=== PATIENT | male | born 1940 | race Caucasian/White ===

== ENCOUNTER → 2018-01-06 16:13 | Outpatient (CLI) | payer MEDICARE, OTHER, SELFPAY ==
[2018-01-06 17:44] LABS: Blood Urea Nitrogen 21 mg/dL (9-20); Calcium 9.5 mg/dL (8.4-10.2); Carbon Dioxide 19 mmol/L (22-32); Chloride 105 mmol/L (98-107); Estimated Glomerular Filt Rate 48.9 mL/min (>60); Glucose 107 mg/dL (80-110); HEMOLYSIS 19 (0-50); Potassium 3.7 mmol/L (3.4-5.1); Sodium 145 mmol/L (137-145)
[2018-01-06 18:18] LABS: Hemoglobin A1C% w Est Avg Glu 6.5 % (4.0-6.0)
== END ==
PROVIDERS: PCP Internal Medicine; Visit Provider Internal Medicine
DX: E11.9 Type 2 diabetes mellitus without complications (principal); I10 Essential (primary) hypertension
CPT/HCPCS: 36415; 80048; 83036

== ENCOUNTER → 2018-03-31 15:56 | Outpatient (CLI) | payer MEDICARE, OTHER, SELFPAY ==
--- NOTE | 2018-03-31 15:57 | DI.RAD.S_ITS ---
PROCEDURE: XR CHEST 2V INDICATIONS: coughing; O2 sat 95-96% TECHNIQUE: 2 views of the chest were acquired. COMPARISON: [facility], CHEST 2 VIEW, 10/24/2017, 16:58. Located Within [facility], , CHEST 1 VIEW, 04/27/2017, 18:33. Located Within [facility], , CHEST 2 VIEW, 09/23/2016, 10:27. FINDINGS: Surgical changes and devices: None. Lungs and pleura: No pleural effusions or pneumothorax. Lungs are clear. Mediastinum: Mediastinal contours are normal. Heart size is normal. Bones and chest wall: No suspicious bony abnormalities. Soft tissues appear unremarkable. IMPRESSION: Normal for age, source of current symptoms is not seen. Dictated by: John Rivas M.D. on 03/31/2018 at 16:35 Approved by: John Rivas M.D. on 03/31/2018 at 16:35
== END ==
PROVIDERS: Family Provider Internal Medicine; PCP Internal Medicine; Visit Provider Nurse Practitioner Family
DX: R05 Cough (principal)
CPT/HCPCS: 71046

== ENCOUNTER → 2018-09-24 14:25 | Outpatient (CLI) | payer MEDICARE, OTHER, SELFPAY ==
[2018-09-24 16:15] LABS: Hemoglobin A1C% w Est Avg Glu 6.1 % (4.0-6.0)
[2018-09-24 16:29] LABS: Alanine Aminotransferase 57 IU/L (21-72); Albumin 4.5 g/dL (3.5-5.0); Albumin Globulin Ratio 1.2 (1.0-2.8); Alkaline Phosphatase 39 U/L (38-126); Aspartate Aminotransferase 56 IU/L (17-59); BUN Creatinine Ratio 15.4 (6-22); Blood Urea Nitrogen 20 mg/dL (9-20); Calcium 9.5 mg/dL (8.4-10.2); Carbon Dioxide 22 mmol/L (22-32); Chloride 104 mmol/L (98-107); Estimated Glomerular Filt Rate 53.1 mL/min (>60); Globulin 3.8 g/dL (1.7-4.1); Glucose 111 mg/dL (80-110); HEMOLYSIS < 15 (0-50); Potassium 4.3 mmol/L (3.4-5.1); Sodium 142 mmol/L (137-145); Total Protein 8.3 g/dL (6.3-8.2)
== END ==
PROVIDERS: PCP Internal Medicine; Visit Provider Internal Medicine
DX: E11.9 Type 2 diabetes mellitus without complications (principal); I10 Essential (primary) hypertension; Z86.73 Personal history of transient ischemic attack (TIA), and cerebral infarction without residual deficits
CPT/HCPCS: 36415; 80053; 83036

== ENCOUNTER → 2019-03-18 15:18 | Outpatient (CLI) | payer MEDICARE, OTHER, SELFPAY ==
[2019-03-18 16:20] LABS: Alanine Aminotransferase 41 IU/L (21-72); Albumin 4.2 g/dL (3.5-5.0); Albumin Globulin Ratio 1.2 (1.0-2.8); Alkaline Phosphatase 39 U/L (38-126); Aspartate Aminotransferase 48 IU/L (17-59); BUN Creatinine Ratio 13.6 (6-22); Bilirubin Total 0.9 mg/dL (0.2-1.3); Blood Urea Nitrogen 19 mg/dL (9-20); Calcium 9.6 mg/dL (8.4-10.2); Carbon Dioxide 24 mmol/L (22-32); Chloride 104 mmol/L (98-107); Estimated Glomerular Filt Rate 48.8 mL/min (>60); Globulin 3.5 g/dL (1.7-4.1); Glucose 104 mg/dL (80-110); HEMOLYSIS < 15 (0-50); Potassium 4.3 mmol/L (3.4-5.1); Sodium 141 mmol/L (137-145); Total Protein 7.7 g/dL (6.3-8.2)
== END ==
PROVIDERS: PCP Internal Medicine; Visit Provider Internal Medicine
DX: E11.9 Type 2 diabetes mellitus without complications (principal); I10 Essential (primary) hypertension; I73.9 Peripheral vascular disease, unspecified
CPT/HCPCS: 36415; 80053; 83036

== ENCOUNTER 2020-06-08 13:50 | Emergency (ER) | payer MEDICARE, OTHER, SELFPAY ==
[2020-06-08] VITALS (8 sets, daily range): BP systolic 108–116; BP diastolic 51–66; PULSE 81–92; RESP 16–24; TEMP 37.1; O2SAT 95–100
--- NOTE | 2020-06-08 14:04 | ED.GENADULT ---
HPI - General Adult General Chief complaint: Fall Stated complaint: GLF Time Seen by Provider: 06/08/20 13:57 Source: EMS Mode of arrival: EMS Limitations: no limitations History of Present Illness HPI narrative: 80-year-old male brought in by EMS for evaluation of 2 days of weakness and a ?controlled fall ?out of his chair at home. EMS reports that they were called to the house by the patient's daughter for a fever yesterday and weakness for the past couple days. Daughter was not at bedside however was able to talk with her over the phone. EMS reports that he was alert oriented x4 however patient's daughter states that at baseline he does have confusion. He is not on anticoagulation. There were no reported injuries from the fall. The daughter states she was concerned about an infection and wanted him evaluated. Patient has no complaints. Related Data Home Medications Medication Instructions Recorded Confirmed aspirin 81 mg PO QDAY #0 01/17/17 03/18/19 krill oil 500 mg capsule mg PO 03/18/19 03/18/19 multivitamin 1 cap PO DAILY 03/18/19 03/18/19 Previous Rx's Medication Instructions Recorded atorvastatin 40 mg tablet 40 mg PO QDAY #30 tab 10/18/19 Allergies Allergy/AdvReac Type Severity Reaction Status Date / Time No Known Drug Allergies Allergy Unknown Verified 03/18/19 15:02 Review of Systems Constitutional Constitutional: Reports fever(s) (Yesterday per daughter) Cardiovascular Cardiovascular: Denies chest pain and Denies dyspnea Respiratory Respiratory: Denies dyspnea Gastrointestinal Gastrointestinal: Denies abdominal pain and Denies nausea Integumentary/Breasts Skin/Breast: Denies rash Comments: Wounds on his buttocks Neurologic Neurologic: Denies behavioral changes Comments: Baseline confusion per daughter over the phone Psychiatric Psychiatric: Denies behavioral changes Hematologic/Lymphatic Comments: Not on anticoagulation per daughter Allergic/Immunologic Allergic/Immunologic: Denies urticaria Patient History Medical History Benign prostatic hyperplasia with incomplete bladder emptying (05/09/17) Chronic renal failure, stage 2 (mild) History of stroke (03/12/11) Hypertension (03/12/11) Peripheral vascular disease Type 2 diabetes mellitus without complication (03/12/11) Surgical History History of carotid endarterectomy (~02/2009) S/P MARKETING SERVICES SPECIALIST shunt Social History Smoking Status: Former smoker Smoking Status: Former smoker Exam Initial Vital Signs Initial Vital Signs: Vital Signs Temperature 98.7 F 06/08/20 14:04 Pulse Rate 92 H 06/08/20 14:04 Respiratory Rate 16 06/08/20 14:04 Blood Pressure 113/58 L 06/08/20 14:04 Pulse Oximetry 99 06/08/20 14:04 Const General: comfortable Limitations: altered mental status HENMT Head: normal to inspection and normocephalic Resp Effort & Inspection: normal respiratory effort Auscultation: clear to auscultation bilaterally Cardio Rate: regular rate Rhythm: regular rhythm GI Inspection: non-distended Palpation: soft Skin Other: Patient with 2 areas of pressure ulcers on his upper buttocks. Right being greater than left. The ulcer itself on the right his 3 cm x 3 cm with surrounding erythema. There is no drainage from this area there is also some crusting. The ulcer on the left is 1 cm x 1 cm again with surrounding erythema. The ulcerations are just below the skin without any subcutaneous tissue exposed. Course Orders Ordered: ED Orders 06/08/20 14:02 Basic Metabolic Panel Stat Complete Blood Count AUTO DIFF Stat 06/08/20 14:03 Consult to RECREATION PROGRAMMER - Keyboard Action Assembler Stat Partial Thromboplastin Time Stat Prothrombin Time INR Stat Vital Signs Vital signs: Vital Signs - 8 hr 06/08/20 14:04 Temperature 98.7 F Pulse Rate 92 H Respiratory Rate 16 Blood Pressure 113/58 L Pulse Oximetry 99 Medical Decision Making Lab Data Lab results reviewed: Yes I reviewed the patient's lab results. Result diagrams: 06/08/20 14:10 06/08/20 14:10 Labs: Lab Results 06/08/20 06/08/20 06/08/20 Range/Units 14:10 14:10 14:10 WBC 10.6 (4.5-11.0) X10^3/uL RBC 4.28 L (4.5-5.9) X10^6/uL Hgb 13.9 (13.5-17.5) g/dL Hct 41.5 (41-53) % MCV 97.0 (80-100) fL MCH 32.6 (26-34) PG MCHC 33.6 (30-36) % RDW 13.7 (11.6-14.8) % Plt Count 253 (150-400) X10^3/uL Neut % (Auto) 74.7 (50-75) % Lymph % (Auto) 16.3 L (25-40) % Nash % (Auto) 7.7 (3-14) % Eos % (Auto) 1.0 L (2-4) % Baso % (Auto) 0.3 (0-2) % Neut # (Auto) 7900 H (7154-6787) /uL Lymph # (Auto) 1700 (0451-3432) /uL Nash # (Auto) 800 (0-900) /uL Eos # (Auto) 100 (0-450) /uL Baso # (Auto) 0 (0-100) /uL PT 13.4 H (10.1-12.7) SECONDS INR 1.2 (0.9-1.3) APTT 27 (26.4-36.2) SECONDS Sodium 141 (137-145) mmol/L Potassium 4.3 (3.4-5.1) mmol/L Chloride 110 H (98-107) mmol/L Carbon Dioxide 29 (22-32) mmol/L BUN 29 H (9-20) mg/dL Creatinine 1.44 H (0.66-1.25) mg/dL Estimated GFR 47.0 L (>60) mL/min BUN/Creatinine Ratio 20.1 (6-22) Glucose 104 (80-110) mg/dL Calcium 9.3 (8.4-10.2) mg/dL [facility] Narrative Medical decision making narrative: Patient is afebrile. He has no complaints. Does not have leukocytosis. I feel that the pressure ulcers on his upper buttocks are not infected. These do not appear to be new issues. Upon discussing the case with his daughter over the phone he has been much more sedentary recently because of COVID-19 and especially more recently after the patient's granddaughter suddenly 1 month ago. I had a discussion with the daughter over the phone about the pressure ulcers. We did discuss that it is important for him to be up moving around to avoid these getting worse. Did inform her that these could potentially be a nidus of an infection. We discussed using pillows to shift his weight at home. I was also able to have social Work talk with her over the phone and were able to get home health scheduled for her. Will discharge the patient home with his his daughter they were instructed to contact the patient's primary provider early next week after the . They were given return precautions. Daughter expressed understanding and agreement. Discharge Plan Departure Patient Disposition: Home Clinical Impression: Pressure ulcer of sacral region Instructions: How to Prevent Pressure Ulcers, DI for Pressure Injuries, How to Prevent Falls Activity Restrictions/Additional Instructions: Recommend that you contact his primary provider tomorrow or on Friday after the if the office is not open tomorrow to schedule a follow-up. It is important that he is up and walking around as much as possible to avoid these pressure ulcers from worsening. Please return to the emergency department for any new or worsening symptoms Prescriptions: No Action aspirin 81 MG tablet,delayed release (DR/EC) 81 mg PO QDAY Qty: 0 RF: 0 atorvastatin 40 mg tablet 40 mg PO QDAY Qty: 30 RF: 11 multivitamin capsule 1 cap PO DAILY RF: 0 krill oil 500 mg capsule PO RF: 0 Referrals: Raul Beasley MD [Primary Care Provider] -
[2020-06-08 14:16] LABS: Add Manual Diff / Slide Review NO; Basophils Absolute Auto 0 /uL (0-100); Basophils Percent Auto 0.3 % (0-2); Eosinophils Absolute Auto 100 /uL (0-450); Hematocrit 41.5 % (41-53); Hemoglobin 13.9 g/dL (13.5-17.5); Lymphocytes Absolute Auto 1700 /uL (1100-4500); Lymphocytes Percent Auto 16.3 % (25-40); Mean Corpuscular HGB Conc 33.6 % (30-36); Mean Corpuscular Hemoglobin 32.6 PG (26-34); Monocytes Absolute Auto 800 /uL (0-900); Monocytes Percent Auto 7.7 % (3-14); Neutrophils Absolute Auto 7900 /uL (1500-7000); Neutrophils Percent Auto 74.7 % (50-75); Platelet Count 253 X10^3/uL (150-400); Red Blood Cell Count 4.28 X10^6/uL (4.5-5.9); Red Cell Distribution Width 13.7 % (11.6-14.8); White Blood Cell Count 10.6 X10^3/uL (4.5-11.0)
[2020-06-08 14:24] LABS: INR 1.2 (0.9-1.3); Prothrombin Time 13.4 SECONDS (10.1-12.7)
[2020-06-08 14:27] LABS: BUN Creatinine Ratio 20.1 (6-22); Blood Urea Nitrogen 29 mg/dL (9-20); Calcium 9.3 mg/dL (8.4-10.2); Carbon Dioxide 29 mmol/L (22-32); Chloride 110 mmol/L (98-107); Glucose 104 mg/dL (80-110); HEMOLYSIS 35 (0-50); PTT Partial Thromboplastin Tim 27 SECONDS (26.4-36.2); Potassium 4.3 mmol/L (3.4-5.1); Sodium 141 mmol/L (137-145)
--- NOTE | 2020-06-08 15:18 | CM.SWNOTE ---
EMERGENCY COMMUNICATIONS OPERATOR note EMERGENCY COMMUNICATIONS OPERATOR consult requested for patient. Patient is a 80 y/o male who presents to ED via EMS following an unwitnessed GLF. Patient has /Medicare for insurance. Per Dr. Rucker, patient not completely A+O. AKIL Martin and Dr. Rucker communicate with Daughter, Marta, , who informs them of the fall and concerns about father. Per Marta, patient is confused at baseline and Marta has been caregiver for past 11 years. Per Marta, it is believed that patient fell out of his chair prior to today's ED visit. After Dr. Rucker's exam, Dr. Rucker calls Marta and discusses findings. Per Dr. Rucker, [place] requests call from EMERGENCY COMMUNICATIONS OPERATOR. EMERGENCY COMMUNICATIONS OPERATOR calls [place] to discuss patient. [place] informs EMERGENCY COMMUNICATIONS OPERATOR that she is currently his only caregiver, and is also caring for her 2 grandchildren following the sudden of her 29 year old daughter. Marta reports the family is grieving and she is struggling to manage caring for everyone and is concerned about patient's mobility. Marta reports that, though he is confused at baseline, the of his granddaughter significantly impacted him, and he has been spending more time sitting in his chair and less time mobile. Lelandir states she patient has engaged in PT in the past and that it was helpful, and at this point, patient would likely benefit from PT as he is not able to be fully mobile independently. EMERGENCY COMMUNICATIONS OPERATOR discusses HH and Marta indicates interest. EMERGENCY COMMUNICATIONS OPERATOR discusses PT, OT, EMERGENCY COMMUNICATIONS OPERATOR, and HH aide and Marta states that she believes all of these would be beneficial at this time. EMERGENCY COMMUNICATIONS OPERATOR discusses this with Dr. Rucker who signs face to face forms and gives verbal orders for HH. EMERGENCY COMMUNICATIONS OPERATOR discusses caregiving, and Marta states she knows several people who work in the field that she plans to consult for additional support and to inquire about cost. EMERGENCY COMMUNICATIONS OPERATOR will provide resource guide with list of local caregiving agencies to [place] with patient d/c notes. EMERGENCY COMMUNICATIONS OPERATOR consults HH rotation list, and agency for this week's rotation is [facility]. EMERGENCY COMMUNICATIONS OPERATOR calls and speaks to answering service, and is informed that EMERGENCY COMMUNICATIONS OPERATOR will receive a return call later in day. Once EMERGENCY COMMUNICATIONS OPERATOR receives return call, EMERGENCY COMMUNICATIONS OPERATOR will fax referral to [facility]. Pl: Patient to d/c to home in care of daughter, Marta. with f/u from . CYNTHIA Byrnes
--- NOTE | 2020-06-08 17:40 | CM.SWNOTE ---
Addendum entered by Gabriel Escobar 06/08/20 18:12: At 1812 TEAM LEADER SURGERY receives call from Luan at [facility] who instructs TEAM LEADER SURGERY to fax referral to [phone]. TEAM LEADER SURGERY faxes referral to [facility]. CYNTHIA Byrnes Original Note: TEAM LEADER SURGERY note/UPDATE TEAM LEADER SURGERY called [facility] at 1500, 1600, and did not receive return call from on-call nurse. Due to holiday, TEAM LEADER SURGERY will attempt again following following day to submit referral. YCNTHIA Byrnes
== END 2020-06-08 17:43 | disposition home or self-care (01) ==
PROVIDERS: Emergency Provider Emergency Medicine; PCP Internal Medicine
DX: L89.159 Pressure ulcer of sacral region, unspecified stage (principal); R50.9 Fever, unspecified; W07.XXXA Fall from chair, initial encounter
CPT/HCPCS: 36415; 80048; 85025; 85610; 85730; 99281; 99283

== ENCOUNTER → 2020-06-22 11:58 | Outpatient (CLI) | payer MEDICARE, OTHER, SELFPAY ==
[2020-06-22 13:46] LABS: Hemoglobin A1C% w Est Avg Glu 6.4 % (4.0-6.0)
== END ==
PROVIDERS: PCP Internal Medicine; Referring Provider Internal Medicine; Visit Provider Internal Medicine
DX: E11.9 Type 2 diabetes mellitus without complications (principal)
CPT/HCPCS: 36415; 83036

== ENCOUNTER 2021-07-02 14:31 | Inpatient (IN) | payer MEDICARE, OTHER, SELFPAY ==
[2021-07-02 15:13] VITALS: BP 105/55; PULSE 117; RESP 18; TEMP 36.9; O2SAT 95; BMI 24.3
[2021-07-02 15:48] LABS: Add Manual Diff / Slide Review NO; Basophils Absolute Auto 100 /uL (0-100); Basophils Percent Auto 0.9 % (0-2); Eosinophils Absolute Auto 100 /uL (0-450); Eosinophils Percent Auto 0.8 % (2-4); Hematocrit 38.4 % (41-53); Lymphocytes Absolute Auto 1900 /uL (1100-4500); Lymphocytes Percent Auto 13.6 % (25-40); Mean Corpuscular HGB Conc 33.8 % (30-36); Mean Corpuscular Hemoglobin 33.1 PG (26-34); Mean Corpuscular Volume 98.1 fL (80-100); Monocytes Absolute Auto 1100 /uL (0-900); Monocytes Percent Auto 7.6 % (3-14); Neutrophils Absolute Auto 10700 /uL (1500-7000); Neutrophils Percent Auto 77.1 % (50-75); Platelet Count 324 X10^3/uL (150-400); Red Blood Cell Count 3.92 X10^6/uL (4.5-5.9); White Blood Cell Count 13.9 X10^3/uL (4.5-11.0)
[2021-07-02 16:03] LABS: Alanine Aminotransferase 123 IU/L (<50); Albumin 3.7 g/dL (3.5-5.0); Albumin Globulin Ratio 0.9 (1.0-2.8); Alkaline Phosphatase 47 U/L (38-126); Aspartate Aminotransferase 188 IU/L (17-59); BUN Creatinine Ratio 29.8 (6-22); Bilirubin Total 0.8 mg/dL (0.2-1.3); Blood Urea Nitrogen 31 mg/dL (9-20); Calcium 9.6 mg/dL (8.4-10.2); Carbon Dioxide 26 mmol/L (22-32); Chloride 107 mmol/L (98-107); Estimated Glomerular Filt Rate > 60.0 mL/min (>60); Globulin 4.1 g/dL (1.7-4.1); Glucose 237 mg/dL (80-110); HEMOLYSIS 15 (0-50); Sodium 140 mmol/L (137-145); Total Protein 7.8 g/dL (6.3-8.2)
[2021-07-02 18:09] VITALS: BP 138/64; PULSE 105; O2SAT 97
[2021-07-02] MEDS: SODIUM CHLORIDE 0.9% 1,000 ML 1000 ML IV ×2 (18:36→20:36)
[2021-07-02 18:54] LABS: Lipase 78 U/L (23-300)
[2021-07-02 19:08] LABS: Lactate (Lactic Acid) 4.2 mmol/L (0.7-2.1)
--- NOTE | 2021-07-02 19:08 | ED_ITS ---
HPI - Extremity Problem General Chief complaint: Extremity Problem,Nontraumatic Stated complaint: Legs curling up- hurts to push back down Time Seen by Provider: 07/02/21 19:08 Source: patient and family Mode of arrival: Wheelchair History of Present Illness HPI Narrative: 81-year-old male with history of recent bowel obstruction now with ostomy, he was hospitalized [facility] end of April to May 18. Cohen catheter was placed at that time as well for urinary retention. Also history of peripheral vascular disease, dementia, CVA, hypertension, diabetes type 2, chronic renal failure presenting today with worsening right leg pain. Daughter his caregiver for him and primary historian. She states that his legs have been cool for some time, he gets spasms and cramps. He typically is able to walk with a walker however he is having significant pain in his right leg he is unable to stand. He has not had any fever or chills but is noted to be tachycardic. He is quite tender to touch and with any movement. No injury. Daughter states that he weaker over last couple days as well. Related Data Previous Rx's Medication Instructions Recorded atorvastatin 40 mg tablet 40 mg PO QDAY #30 tab 11/09/20 Low air loss mattress #1 ea 06/05/21 nystatin 100,000 unit/gram topical 1 applic TOPICAL QID #60 g 06/19/21 powder tamsulosin 0.4 mg capsule 0.8 mg PO BEDTIME #60 cap 07/02/21 Allergies Allergy/AdvReac Type Severity Reaction Status Date / Time cefuroxime AdvReac Intermediate rash Verified 05/24/21 10:14 Review of Systems Review of Systems Narrative: Received from daughter as mentioned in HPI ROS Unobtainable: Unobtainable due to mental condition Patient History Medical History Benign prostatic hyperplasia with incomplete bladder emptying (05/09/17) Chronic renal failure, stage 2 (mild) Colostomy in place (~04/2021) History of stroke (03/12/11) Hypertension (03/12/11) Peripheral vascular disease Retention of urine Type 2 diabetes mellitus without complication (03/12/11) Surgical History History of carotid endarterectomy (~02/2009) [employer] shunt Status post partial colectomy (~04/2021) Family History Father Cancer Sister Cancer Social History marital status: number of children: 1 household members: family Smoking Status: Former smoker alcohol intake: former caffeine: Yes Smoking Status: Former smoker Substance Use Type: does not use Exam Initial Vital Signs Initial Vital Signs: Vital Signs Temperature 98.5 F 07/02/21 15:13 Pulse Rate 117 H 07/02/21 15:13 Respiratory Rate 18 07/02/21 15:13 Blood Pressure 105/55 L 07/02/21 15:13 Pulse Oximetry 95 07/02/21 15:13 GENERAL: Alert thin 81-year-old male HEENT: Head atraumatic,EOMI, pupils reactive, face symmetric, moist mucous membranes CARDIOVASCULAR: Regular rate and rhythm without murmurs, rubs or gallops. RESPIRATORY: Breath sounds equal bilaterally, no wheezes rales or rhonchi. ABDOMEN: Soft, nontender. Normoactive bowel sounds all 4 quadrants. No guarding or rebound. ostomy in place left lower quadrant : Cohen in place EXTREMITIES: Normal range of motion, no clubbing or edema. Neurovascularly intact Bilateral cool pale feet and extremities distal pedal pulses are difficult to find bilaterally NEUROLOGICAL: Alert and oriented x2 SKIN: Warm, dry, no laceration, no petechiae, no rashes or lesions. Course Orders Ordered: ED Orders 07/02/21 18:27 Blood Culture Stat COVID19 - ADMIT (CARETAKER RESORT swab/PCR) Stat 07/02/21 19:18 Chest [XR chest 1V] Stat US arterial duplex LE BI Stat 07/02/21 19:23 XR hip w pel if done RT 2V Stat XR knee RT 3V Stat 07/02/21 20:09 US abdomen limited Stat 07/02/21 20:45 UA Complete [Urinalysis and Microscopic] Stat Urine Culture Stat Acetaminophen (Acetaminophen 325 Mg Tablet) 650 mg PO Q6HR PRN PRN Reason: Fever/Mild Pain (1-3) Al Hydrox/Mg Hydrox/Simethicone (Mag Hydrox/Alum/Simeth 30 Ml Udc) 30 ml PO Q6HR PRN PRN Reason: Dyspepsia Atorvastatin Calcium (Atorvastatin 20 Mg Tablet) 40 mg PO BEDTIME VANNESSA Last Admin: 07/02/21 23:49 Dose: 40 mg Documented by: JONAS Dextrose (Dextrose 50 % In Water 25 Gm/50 Ml Syringe) 25 gm IV PRN PRN PRN Reason: Hypoglycemia Enoxaparin Sodium (Enoxaparin 40 Mg/0.4 Ml Syringe) 40 mg SUBCUT DAILY VANNESSA Sodium Chloride (Normal Saline 0.45%) 1,000 mls @ 84 mls/hr IV CONT VANNESSA Last Admin: 07/02/21 23:15 Dose: 84 mls/hr Documented by: JONAS Insulin Human Lispro (Insulin Lispro 100 Unit/Ml 3ml Vial) 0 unit SUBCUT ACHS VANNESSA; Protocol Multivitamins (Multivitamin 1 Tablet) 1 tab PO DAILY VANNESSA Naloxone HCl (Naloxone 0.4 Mg/Ml Vial) 0.2 mg IV Q2MIN PRN PRN Reason: Opiate Reversal Tamsulosin HCl (Tamsulosin 0.4 Mg Capsule) 0.8 mg PO BEDTIME VANNESSA Last Admin: 07/02/21 23:49 Dose: 0.8 mg Documented by: JONAS Discontinued Medications Sodium Chloride (Normal Saline 0.9%) 1,000 mls @ 1,000 mls/hr IV BOLUS ONE Stop: 07/02/21 19:00 Last Infusion: 07/02/21 19:48 Dose: 0 mls/hr Documented by: Admin: 07/02/21 18:36 Dose: 1,000 mls/hr Documented by: TYRELL Sodium Chloride (Normal Saline 0.9%) 1,000 mls @ 1,000 mls/hr IV BOLUS ONE Stop: 07/02/21 20:20 Last Infusion: 07/02/21 22:03 Dose: 0 mls/hr Documented by: Admin: 07/02/21 20:36 Dose: 1,000 mls/hr Documented by: TYRELL Levofloxacin (Levaquin) 500 mg in 100 mls @ 100 mls/hr IV NOW ONE Stop: 07/02/21 22:58 Last Infusion: 07/02/21 23:14 Dose: 0 mls/hr Documented by: Infusion: 07/02/21 22:45 Dose: 0 mls/hr Documented by: Admin: 07/02/21 22:08 Dose: 100 mls/hr Documented by: HAKEEMYLOR Non-Formulary Medication (Multivitamin) 1 cap PO DAILY VANNESSA Vital Signs Vital signs: Vital Signs - 8 hr 07/02/21 18:09 07/02/21 21:20 Pulse Rate 105 H 93 H Respiratory Rate 18 Blood Pressure 138/64 146/66 H Pulse Oximetry 97 98 MDM - Extremity (Nontraumatic) Lab Data Result diagrams: 07/02/21 15:23 07/02/21 15:23 Labs: Lab Results 07/02/21 07/02/21 07/02/21 Range/Units 15:23 15:23 15:23 WBC 13.9 H (4.5-11.0) X10^3/uL RBC 3.92 L (4.5-5.9) X10^6/uL Hgb 13.0 L (13.5-17.5) g/dL Hct 38.4 L (41-53) % MCV 98.1 (80-100) fL MCH 33.1 (26-34) PG MCHC 33.8 (30-36) % RDW 14.0 (11.6-14.8) % Plt Count 324 (150-400) X10^3/uL Neut % (Auto) 77.1 H (50-75) % Lymph % (Auto) 13.6 L (25-40) % Johnson % (Auto) 7.6 (3-14) % Eos % (Auto) 0.8 L (2-4) % Baso % (Auto) 0.9 (0-2) % Neut # (Auto) 20517 H (7038-5535) /uL Lymph # (Auto) 1900 (4924-5035) /uL Johnson # (Auto) 1100 H (0-900) /uL Eos # (Auto) 100 (0-450) /uL Baso # (Auto) 100 (0-100) /uL Sodium 140 (137-145) mmol/L Potassium 4.0 (3.4-5.1) mmol/L Chloride 107 (98-107) mmol/L Carbon Dioxide 26 (22-32) mmol/L BUN 31 H (9-20) mg/dL Creatinine 1.04 (0.66-1.25) mg/dL Estimated GFR > 60.0 (>60) mL/min BUN/Creatinine Ratio 29.8 H (6-22) Glucose 237 H (80-110) mg/dL Lactate 4.2 H* (0.7-2.1) mmol/L Calcium 9.6 (8.4-10.2) mg/dL Total Bilirubin 0.8 (0.2-1.3) mg/dL AST 188 H (17-59) IU/L ALT 123 H (<50) IU/L Alkaline Phosphatase 47 (38-126) U/L Total Protein 7.8 (6.3-8.2) g/dL Albumin 3.7 (3.5-5.0) g/dL Globulin 4.1 (1.7-4.1) g/dL Albumin/Globulin Ratio 0.9 L (1.0-2.8) Lipase (23-300) U/L Procalcitonin (<0.5) ng/mL Urine Color Urine Appearance Urine pH (4.5-8.0) Ur Specific Winston (1.000-1.035) Urine Protein (Negative) Urine Glucose (UA) (Negative) g/dL Urine Ketones (NEGATIVE) Urine Occult Blood (Negative) Urine Nitrate (Negative) Urine Bilirubin (NEGATIVE) Urine Urobilinogen (0.2) E.U./dL Ur Leukocyte Esterase (NEGATIVE) Urine RBC (0-5/HPF) Urine WBC (0-5/HPF) Urine Bacteria (None) Ur Culture Indicated? SARS-CoV-2 (PCR) (Negative) 07/02/21 07/02/21 07/02/21 Range/Units 15:23 18:27 20:45 WBC (4.5-11.0) X10^3/uL RBC (4.5-5.9) X10^6/uL Hgb (13.5-17.5) g/dL Hct (41-53) % MCV (80-100) fL MCH (26-34) PG MCHC (30-36) % RDW (11.6-14.8) % Plt Count (150-400) X10^3/uL Neut % (Auto) (50-75) % Lymph % (Auto) (25-40) % Johnson % (Auto) (3-14) % Eos % (Auto) (2-4) % Baso % (Auto) (0-2) % Neut # (Auto) (3583-6024) /uL Lymph # (Auto) (8606-0763) /uL Johnson # (Auto) (0-900) /uL Eos # (Auto) (0-450) /uL Baso # (Auto) (0-100) /uL Sodium (137-145) mmol/L Potassium (3.4-5.1) mmol/L Chloride (98-107) mmol/L Carbon Dioxide (22-32) mmol/L BUN (9-20) mg/dL Creatinine (0.66-1.25) mg/dL Estimated GFR (>60) mL/min BUN/Creatinine Ratio (6-22) Glucose (80-110) mg/dL Lactate (0.7-2.1) mmol/L Calcium (8.4-10.2) mg/dL Total Bilirubin (0.2-1.3) mg/dL AST (17-59) IU/L ALT (<50) IU/L Alkaline Phosphatase (38-126) U/L Total Protein (6.3-8.2) g/dL Albumin (3.5-5.0) g/dL Globulin (1.7-4.1) g/dL Albumin/Globulin Ratio (1.0-2.8) Lipase 78 (23-300) U/L Procalcitonin 0.17 (<0.5) ng/mL Urine Color Yellow Urine Appearance Cloudy Urine pH 5.0 (4.5-8.0) Ur Specific Winston 1.025 (1.000-1.035) Urine Protein 1+ H (Negative) Urine Glucose (UA) Negative (Negative) g/dL Urine Ketones Negative (NEGATIVE) Urine Occult Blood 2+ H (Negative) Urine Nitrate Positive H (Negative) Urine Bilirubin Negative (NEGATIVE) Urine Urobilinogen 0.2 (0.2) E.U./dL Ur Leukocyte Esterase 2+ H (NEGATIVE) Urine RBC 5-10/hpf H (0-5/HPF) Urine WBC >100/hpf H (0-5/HPF) Urine Bacteria Many (>30) H (None) Ur Culture Indicated? Specimen cultured SARS-CoV-2 (PCR) Negative (Negative) 07/02/21 Range/Units 21:19 WBC (4.5-11.0) X10^3/uL RBC (4.5-5.9) X10^6/uL Hgb (13.5-17.5) g/dL Hct (41-53) % MCV (80-100) fL MCH (26-34) PG MCHC (30-36) % RDW (11.6-14.8) % Plt Count (150-400) X10^3/uL Neut % (Auto) (50-75) % Lymph % (Auto) (25-40) % Johnson % (Auto) (3-14) % Eos % (Auto) (2-4) % Baso % (Auto) (0-2) % Neut # (Auto) (2815-3238) /uL Lymph # (Auto) (0596-6552) /uL Johnson # (Auto) (0-900) /uL Eos # (Auto) (0-450) /uL Baso # (Auto) (0-100) /uL Sodium (137-145) mmol/L Potassium (3.4-5.1) mmol/L Chloride (98-107) mmol/L Carbon Dioxide (22-32) mmol/L BUN (9-20) mg/dL Creatinine (0.66-1.25) mg/dL Estimated GFR (>60) mL/min BUN/Creatinine Ratio (6-22) Glucose (80-110) mg/dL Lactate 2.6 H (0.7-2.1) mmol/L Calcium (8.4-10.2) mg/dL Total Bilirubin (0.2-1.3) mg/dL AST (17-59) IU/L ALT (<50) IU/L Alkaline Phosphatase (38-126) U/L Total Protein (6.3-8.2) g/dL Albumin (3.5-5.0) g/dL Globulin (1.7-4.1) g/dL Albumin/Globulin Ratio (1.0-2.8) Lipase (23-300) U/L Procalcitonin (<0.5) ng/mL Urine Color Urine Appearance Urine pH (4.5-8.0) Ur Specific Winston (1.000-1.035) Urine Protein (Negative) Urine Glucose (UA) (Negative) g/dL Urine Ketones (NEGATIVE) Urine Occult Blood (Negative) Urine Nitrate (Negative) Urine Bilirubin (NEGATIVE) Urine Urobilinogen (0.2) E.U./dL Ur Leukocyte Esterase (NEGATIVE) Urine RBC (0-5/HPF) Urine WBC (0-5/HPF) Urine Bacteria (None) Ur Culture Indicated? SARS-CoV-2 (PCR) (Negative) Imaging Data Chest x-ray: Radiologist's Impression: PROCEDURE:? XR CHEST 1V ? INDICATIONS:? weakness ? TECHNIQUE:? One view of the chest was acquired.? ? COMPARISON:? [facility], CR, XR CHEST 2V, 03/31/2018, 15:49. ? FINDINGS:? ? Surgical changes and devices:? None.? ? Lungs and pleura:? Lungs are clear.? No pleural effusions or pneumothorax.? ? Mediastinum:? Mediastinal contours appear normal.? Heart size is normal.? ? Bones and chest wall:? No suspicious bony lesions.? Overlying soft tissues appear unremarkable.? ? IMPRESSION:? No acute process. ? ? Dictated by: Priti Barnett M.D. on 07/02/2021 at 19:47 ?? US arterial: Radiologist's Impression: PROCEDURE:? US ARTERIAL DUPLEX LE BI ? INDICATIONS:? DECREASED PULSES AND COLD ? TECHNIQUE:? Color and pulse Doppler interrogation was performed of both lower extremity arterial systems, with image documentation.? ? COMPARISON:? None. ? FINDINGS:? Limited examination secondary to patient's inability to maintain a stationary position. ? Right lower extremity:? Common femoral artery:? 101 cm/sec, with triphasic flow.? Deep femoral artery:? 122 cm/sec, with triphasic flow.? Proximal superficial femoral artery:? 51 cm/sec, with triphasic flow.? Mid superficial femoral artery:? 30 cm/sec, with biphasic flow.? Distal superficial femoral artery:? 147 cm/sec, with biphasic flow.? Popliteal artery:? 15 cm/sec, with biphasic flow.? Posterior tibial artery:? 10 cm/sec, with monophasic flow.? Anterior tibial artery/dorsalis pedis:? 15 cm/sec, with biphasic flow.? Berkowitz-scale imaging description:? Severe diffuse plaque ? Left lower extremity:? Common femoral artery:? 207 cm/sec, with triphasic flow.? Deep femoral artery:? 137 cm/sec, with triphasic flow.? Proximal superficial femoral artery:? 90 cm/sec, with monophasic flow.? Mid superficial femoral artery:? 147 cm/sec, with monophasic flow.? Distal superficial femoral artery:? 76 cm/sec, with monophasic flow.? Popliteal artery:? 30 cm/sec, with biphasic flow.? Posterior tibial artery:? 22 cm/sec, with biphasic flow.? Anterior tibial artery/dorsalis pedis:? 10 cm/sec, with monophasic flow.? Berkowitz-scale imaging description:? Severe diffuse plaque ? ? IMPRESSION:? 1. No acute process. 2. Findings suggestive of bilateral outflow stenoses. 3. No definite runoff vessel stenosis. 4. Further assessment with nonemergent outpatient follow-up MR angiography runoff evaluation is recommended.? ? Dictated by: Priti Barnett M.D. on 07/02/2021 at 20:54 ? ? Extremity x-ray #1: Radiologist's Impression: PROCEDURE:? XR HIP W PEL IF DONE RT 2V ? INDICATIONS:? pain ? TECHNIQUE:? AP pelvis with lateral view(s) of the right hip(s).? ? COMPARISON:? None. ? FINDINGS:? ? Bones:? No fractures or dislocations.? Pelvic ring appears intact.? No suspi cious bony lesions.? Mild bilateral hip joint space narrowing and periarticular osteophyte formation. ? Soft tissues:? The visualized bowel gas pattern is normal.? No suspicious soft tissue calcifications.? ? ? IMPRESSION:? Osteoarthritis. No acute fracture. No osseous lesion. If symptoms and/or clinical suspicion for pathology persist, further assessment with repeat, or advanced imaging (e.g., CT, MRI, or bone scan) may be helpful for further assessment. ? ? ? Dictated by: Priti Barnett M.D. on 07/02/2021 at 20:51 ? ? Extremity x-ray #2: Radiologist's Impression: PROCEDURE:? XR KNEE RT 3V ? INDICATIONS:? pain ? TECHNIQUE:? 3 views of the knee were acquired.? ? COMPARISON:? None. ? FINDINGS:? ? Bones:? No fractures or dislocations.? No suspicious bony lesions.? ? Soft tissues:? No joint effusion.? No suspicious soft tissue calcifications.? ? ? IMPRESSION:? No acute fracture. No osseous lesion. If symptoms and/or clinical suspicion for pathology persist, further assessment with repeat, or advanced imaging (e.g., CT, MRI, or bone scan) may be helpful for further assessment. ? ? Dictated by: Priti Barnett M.D. on 07/02/2021 at 20:51 ? ? Approved by: Priti Barnett M.D. on 07/02/2021 at 20:51 US - abdomen: Radiologist's Impression: PROCEDURE:? US ABDOMEN LIMITED ? INDICATIONS:? ELEVATED LIVER ENZYMES ? TECHNIQUE:? Real-time scanning was performed of the abdominal and retroperitoneal organs, with image documentation.? ? COMPARISON:? None. ? FINDINGS:? ? Liver:? Liver is normal in size and homogeneous in echotexture as visualized.? Left lobe is not well seen. ? Gallbladder:? Multiple calculi within the gallbladder lumen.? No evidence of cholecystitis.? ? Biliary ducts:? Intrahepatic bile ducts are non-dilated.? Extrahepatic bile duct caliber measures 7.5 mm.? Normal is 6-7 mm or less in diameter, or 10 mm or less post-cholecystectomy.? ? Pancreas:? Not well seen. ? IMPRESSION:? 1. Limited examination demonstrating cholelithiasis with no evidence of cholecystitis. ? Dictated by: Priti Barnett M.D. on 07/02/2021 at 20:56 ? ? Approved by: Priti Barnett M.D. on 07/02/2021 at 20:57? MDM Narrative Medical decision making narrative: The patient is generally weak appearing sitting in wheelchair. Initially found to be tachycardic with leukocytosis. His right leg is quite painful to touch but x-rays do not show any abnormality legs are cool is slightly cyanotic and difficult to find peripheral pulses. However once patient is repositioned into the bed legs warm and alert improves ultrasound Dopplers do not show any stenosis. He is found to have UTI with mild leukocytosis and lactic acid of greater than 4. The it does improve with IV fluids he is afebrile with normal blood pressure. No other source of infection is found. He did have some elevated liver enzymes normal bilirubin in no right upper quadrant pain ultrasound is also negative. At this time I see no need for further imaging. He has nitrates in his urine in chronic Cohen catheter. He is allergic to cephalosporins so he is given Levaquin. Dr. Beasley updated patient's symptoms test results and happily accepts patient. Patient is sleeping and appears comfortable does not need medication. Discharge Plan Departure Patient Disposition: Admitted As Inpatient Clinical Impression: Acute UTI, Sepsis Admit Date/Time: 07/02/21 22:08 Admit Provider: Raul Beasley
[2021-07-02 19:12] LABS: Procalcitonin 0.17 ng/mL (<0.5)
--- NOTE | 2021-07-02 19:18 | DI.RAD.S_ITS ---
PROCEDURE: XR CHEST 1V INDICATIONS: weakness TECHNIQUE: One view of the chest was acquired. COMPARISON: [facility], CR, XR CHEST 2V, 03/31/2018, 15:49. FINDINGS: Surgical changes and devices: None. Lungs and pleura: Lungs are clear. No pleural effusions or pneumothorax. Mediastinum: Mediastinal contours appear normal. Heart size is normal. Bones and chest wall: No suspicious bony lesions. Overlying soft tissues appear unremarkable. IMPRESSION: No acute process. Dictated by: Priti Barnett M.D. on 07/02/2021 at 19:47 Approved by: Priti Barnett M.D. on 07/02/2021 at 19:47
--- NOTE | 2021-07-02 19:18 | DI.US.S_ITS ---
PROCEDURE: US ARTERIAL DUPLEX LE BI INDICATIONS: DECREASED PULSES AND COLD TECHNIQUE: Color and pulse Doppler interrogation was performed of both lower extremity arterial systems, with image documentation. COMPARISON: None. FINDINGS: Limited examination secondary to patient's inability to maintain a stationary position. Right lower extremity: Common femoral artery: 101 cm/sec, with triphasic flow. Deep femoral artery: 122 cm/sec, with triphasic flow. Proximal superficial femoral artery: 51 cm/sec, with triphasic flow. Mid superficial femoral artery: 30 cm/sec, with biphasic flow. Distal superficial femoral artery: 147 cm/sec, with biphasic flow. Popliteal artery: 15 cm/sec, with biphasic flow. Posterior tibial artery: 10 cm/sec, with monophasic flow. Anterior tibial artery/dorsalis pedis: 15 cm/sec, with biphasic flow. Berkowitz-scale imaging description: Severe diffuse plaque Left lower extremity: Common femoral artery: 207 cm/sec, with triphasic flow. Deep femoral artery: 137 cm/sec, with triphasic flow. Proximal superficial femoral artery: 90 cm/sec, with monophasic flow. Mid superficial femoral artery: 147 cm/sec, with monophasic flow. Distal superficial femoral artery: 76 cm/sec, with monophasic flow. Popliteal artery: 30 cm/sec, with biphasic flow. Posterior tibial artery: 22 cm/sec, with biphasic flow. Anterior tibial artery/dorsalis pedis: 10 cm/sec, with monophasic flow. Berkowitz-scale imaging description: Severe diffuse plaque IMPRESSION: 1. No acute process. 2. Findings suggestive of bilateral outflow stenoses. 3. No definite runoff vessel stenosis. 4. Further assessment with nonemergent outpatient follow-up MR angiography runoff evaluation is recommended. Dictated by: Priti Barnett M.D. on 07/02/2021 at 20:54 Approved by: Priti Barnett M.D. on 07/02/2021 at 20:56
--- NOTE | 2021-07-02 19:23 | DI.RAD.S_ITS ---
PROCEDURE: XR KNEE RT 3V INDICATIONS: pain TECHNIQUE: 3 views of the knee were acquired. COMPARISON: None. FINDINGS: Bones: No fractures or dislocations. No suspicious bony lesions. Soft tissues: No joint effusion. No suspicious soft tissue calcifications. IMPRESSION: No acute fracture. No osseous lesion. If symptoms and/or clinical suspicion for pathology persist, further assessment with repeat, or advanced imaging (e.g., CT, MRI, or bone scan) may be helpful for further assessment. Dictated by: Priti Barnett M.D. on 07/02/2021 at 20:51 Approved by: Priti Barnett M.D. on 07/02/2021 at 20:51
--- NOTE | 2021-07-02 19:23 | DI.RAD.S_ITS ---
PROCEDURE: XR HIP W PEL IF DONE RT 2V INDICATIONS: pain TECHNIQUE: AP pelvis with lateral view(s) of the right hip(s). COMPARISON: None. FINDINGS: Bones: No fractures or dislocations. Pelvic ring appears intact. No suspicious bony lesions. Mild bilateral hip joint space narrowing and periarticular osteophyte formation. Soft tissues: The visualized bowel gas pattern is normal. No suspicious soft tissue calcifications. IMPRESSION: Osteoarthritis. No acute fracture. No osseous lesion. If symptoms and/or clinical suspicion for pathology persist, further assessment with repeat, or advanced imaging (e.g., CT, MRI, or bone scan) may be helpful for further assessment. Dictated by: Priti Barnett M.D. on 07/02/2021 at 20:51 Approved by: Priti Barnett M.D. on 07/02/2021 at 20:52
[2021-07-02 19:31] LABS: COVID19 - ADMIT (NP swab/PCR) Negative (Negative)
--- NOTE | 2021-07-02 19:46 | PC.NURSE ---
Pt assisted to bed with x3 assist. Bilateral dorsalis pedis pulses dopplered, feet cold to touch, reports pain in right foot. Leg bag switched out to a new bag for urine collection. Pt noted to have ostomy bag on LLQ.
--- NOTE | 2021-07-02 20:09 | DI.US.S_ITS ---
PROCEDURE: US ABDOMEN LIMITED INDICATIONS: ELEVATED LIVER ENZYMES TECHNIQUE: Real-time scanning was performed of the abdominal and retroperitoneal organs, with image documentation. COMPARISON: None. FINDINGS: Liver: Liver is normal in size and homogeneous in echotexture as visualized. Left lobe is not well seen. Gallbladder: Multiple calculi within the gallbladder lumen. No evidence of cholecystitis. Biliary ducts: Intrahepatic bile ducts are non-dilated. Extrahepatic bile duct caliber measures 7.5 mm. Normal is 6-7 mm or less in diameter, or 10 mm or less post-cholecystectomy. Pancreas: Not well seen. IMPRESSION: 1. Limited examination demonstrating cholelithiasis with no evidence of cholecystitis. Dictated by: Priti Barnett M.D. on 07/02/2021 at 20:56 Approved by: Priti Barnett M.D. on 07/02/2021 at 20:57
[2021-07-02 20:40] LABS: Reflexed Lactate in 2 Hours Y
[2021-07-02 21:08] LABS: Appearance Urine UA CLOUDY; Bilirubin Urine UA NEGATIVE (NEGATIVE); Color Urine UA YELLOW; Glucose Urine UA NEGATIVE (Negative); Ketones Urine UA NEGATIVE (NEGATIVE); Leukocyte Esterase Urine UA 2+ (NEGATIVE); Nitrite Urine UA POSITIVE (Negative); Occult Blood Urine UA 2+ (Negative); Protein Urine UA 1+ (Negative); Specific Gravity Urine UA 1.025 (1.000-1.035); Urobilinogen Urine UA 0.2 E.U./dL (0.2)
[2021-07-02 21:15] LABS: Bacteria Urine Many (>30); Culture Indicated Urine Specimen Cultured; RBC Urine 5-10/HPF (0-5/HPF); WBC Urine >100/HPF (0-5/HPF)
[2021-07-02 21:20] VITALS: BP 146/66; PULSE 93; RESP 18; O2SAT 98
[2021-07-02 21:36] LABS: Lactate 2HR (Lactic Acid Rflx) 2.6 mmol/L (0.7-2.1)
[2021-07-02] MEDS: levoFLOXacin 500 MG/100 ML PIGGYBACK 100 MG IV (22:08)
[2021-07-02 22:12] VITALS: BMI 20.7
[2021-07-02] MEDS: SODIUM CHLORIDE 0.45% 1,000 ML 84 ML IV (23:15)
[2021-07-02] MEDS: ATORVASTATIN 20 MG TABLET 40 MG PO (23:49)
[2021-07-02] MEDS: TAMSULOSIN 0.4 MG CAPSULE 0.8 MG PO (23:49)
[2021-07-03] VITALS (8 sets, daily range): BP systolic 112–131; BP diastolic 51–59; PULSE 82–95; RESP 16–18; TEMP 36.8–37.6; O2SAT 98–99
--- NOTE | 2021-07-03 01:49 | PC.ADMIT ---
Patient admitted to room 215 from ER per stretcher at 2315. Transferred into bed using slider board. Patient intermittently verbally hostile toward staff but easily redirected. Is oriented to self and knows the year he was born but did not know birthdate. States he believes he is in a bar. Does not know date and states he doesn't care. Denies any hearing loss. Has poor dentition. Breath sounds CTA with RA sat of 98%. HRR. BT present and abdomen is soft. Has indwelling catheter which he had placed in Apr/May for urinary retention. Was able to turn in bed. Gait not assessed. Was able to move both legs and denied any pain. Weak bilateral pedal pulses and feet are pale and cool to touch. Bilateral calf SCD's applied. Fall risk score is high and bed alarm is activated. [email or web address] [facility] Admission Note: The patient,Holger Syed,81 y/o, was given written information regarding hospital policies, unit procedures and contact persons. Patient's smoking status: Former smoker. Vital Signs - 8 hr 07/02/21 18:09 07/02/21 21:20 07/03/21 01:30 Temperature 98.2 F Pulse Rate 105 H 93 H 86 Respiratory Rate 18 16 Blood Pressure 138/64 146/66 H 112/55 L Pulse Oximetry 97 98 98
[2021-07-03 05:55] LABS: Add Manual Diff / Slide Review NO; Basophils Absolute Auto 0 /uL (0-100); Basophils Percent Auto 0.4 % (0-2); Eosinophils Absolute Auto 100 /uL (0-450); Eosinophils Percent Auto 0.5 % (2-4); Hematocrit 35.1 % (41-53); Hemoglobin 11.8 g/dL (13.5-17.5); Lymphocytes Absolute Auto 1800 /uL (1100-4500); Lymphocytes Percent Auto 17.5 % (25-40); Mean Corpuscular HGB Conc 33.7 % (30-36); Mean Corpuscular Hemoglobin 32.7 PG (26-34); Monocytes Absolute Auto 800 /uL (0-900); Monocytes Percent Auto 7.7 % (3-14); Neutrophils Absolute Auto 7500 /uL (1500-7000); Neutrophils Percent Auto 73.9 % (50-75); Platelet Count 208 X10^3/uL (150-400); Red Blood Cell Count 3.61 X10^6/uL (4.5-5.9); Red Cell Distribution Width 14.2 % (11.6-14.8); White Blood Cell Count 10.2 X10^3/uL (4.5-11.0)
[2021-07-03 06:03] LABS: BUN Creatinine Ratio 29.4 (6-22); Blood Urea Nitrogen 25 mg/dL (9-20); Calcium 8.6 mg/dL (8.4-10.2); Carbon Dioxide 25 mmol/L (22-32); Chloride 109 mmol/L (98-107); Estimated Glomerular Filt Rate > 60.0 mL/min (>60); Glucose 129 mg/dL (80-110); HEMOLYSIS 44 (0-50); Sodium 140 mmol/L (137-145)
[2021-07-03 06:40] LABS: Hemoglobin A1C% w Est Avg Glu 5.3 % (4.0-6.0)
--- NOTE | 2021-07-03 06:43 | P.HP_ITS ---
History of Present Illness History of Present Illness Date Patient Seen: 07/03/21 Time Patient Seen: 06:43 Chief complaint: Legs curling up- hurts to push back down Narrative: 81-year-old male admitted from the [facility] Emergency Department because of UTI with probable sepsis. Patient with tachycardia, modest hypotension an obvious UTI. Patient also reported some discomfort in his legs which seem to be more positional as when he was reposition this seem to improve significantly ER evaluation showed a leukocytosis as well as the dirty urine and elevated lactate level. 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 Lives chronically at home with daughter. Patient History Medical History Benign prostatic hyperplasia with incomplete bladder emptying (05/09/17) Chronic renal failure, stage 2 (mild) Colostomy in place (~04/2021) History of stroke (03/12/11) Hypertension (03/12/11) Peripheral vascular disease Retention of urine Type 2 diabetes mellitus without complication (03/12/11) Surgical History History of carotid endarterectomy (~02/2009) S/P VISCOSE CELLAR WORKER shunt Status post partial colectomy (~04/2021) Family & Social History Family History Father Cancer Sister Cancer Social History: household members family Prior Living Arrangements House Safety & Behavioral: Feels Safe in Current Yes Environment Been Physically Hurt or No Threatened By a Person Suicidal Ideation Description None Suicide Plan Description No Plan Tobacco & Substance use: Smoking Status Former smoker alcohol intake former Substance Use Type does not use Meds Home Medications and Allergies Home Medications Medication Instructions Recorded Confirmed Type atorvastatin 40 mg tablet 40 mg PO QDAY #30 tab 11/09/20 07/02/21 Rx Low air loss mattress #1 ea 06/05/21 07/02/21 Rx nystatin 100,000 unit/gram topical 1 applic TOPICAL QID #60 g 06/19/21 07/02/21 Rx powder tamsulosin 0.4 mg capsule 0.8 mg PO BEDTIME #60 cap 07/02/21 07/02/21 Rx Allergies Allergy/AdvReac Type Severity Reaction Status Date / Time cefuroxime AdvReac Intermediate rash Verified 05/24/21 10:14 Exam Vital Signs (past 8 hours): - 07/03/21 01:30 Temperature 98.2 F Pulse Rate 86 Respiratory Rate 16 Blood Pressure 112/55 L Pulse Oximetry 98 Oxygen Delivery Method Room Air Objective Labs Result Diagrams: 07/03/21 05:08 07/03/21 05:08 Labs: Laboratory Results - last 24 hr 07/02/21 07/02/21 07/02/21 15:23 15:23 15:23 WBC 13.9 H RBC 3.92 L Hgb 13.0 L Hct 38.4 L MCV 98.1 MCH 33.1 MCHC 33.8 RDW 14.0 Plt Count 324 Neut % (Auto) 77.1 H Lymph % (Auto) 13.6 L [place] % (Auto) 7.6 Eos % (Auto) 0.8 L Baso % (Auto) 0.9 Neut # (Auto) 19169 H Lymph # (Auto) 1900 [place] # (Auto) 1100 H Eos # (Auto) 100 Baso # (Auto) 100 Sodium 140 Potassium 4.0 Chloride 107 Carbon Dioxide 26 BUN 31 H Creatinine 1.04 Estimated GFR > 60.0 BUN/Creatinine Ratio 29.8 H Glucose 237 H Hemoglobin A1c Lactate 4.2 H* Calcium 9.6 Total Bilirubin 0.8 AST 188 H ALT 123 H Alkaline Phosphatase 47 Total Protein 7.8 Albumin 3.7 Globulin 4.1 Albumin/Globulin Ratio 0.9 L Lipase Procalcitonin Urine Color Urine Appearance Urine pH Ur Specific [place] Urine Protein Urine Glucose (UA) Urine Ketones Urine Occult Blood Urine Nitrate Urine Bilirubin Urine Urobilinogen Ur Leukocyte Esterase Urine RBC Urine WBC Urine Bacteria Ur Culture Indicated? SARS-CoV-2 (PCR) 07/02/21 07/02/21 07/02/21 15:23 18:27 20:45 WBC RBC Hgb Hct MCV MCH MCHC RDW Plt Count Neut % (Auto) Lymph % (Auto) [place] % (Auto) Eos % (Auto) Baso % (Auto) Neut # (Auto) Lymph # (Auto) [place] # (Auto) Eos # (Auto) Baso # (Auto) Sodium Potassium Chloride Carbon Dioxide BUN Creatinine Estimated GFR BUN/Creatinine Ratio Glucose Hemoglobin A1c Lactate Calcium Total Bilirubin AST ALT Alkaline Phosphatase Total Protein Albumin Globulin Albumin/Globulin Ratio Lipase 78 Procalcitonin 0.17 Urine Color Yellow Urine Appearance Cloudy Urine pH 5.0 Ur Specific [place] 1.025 Urine Protein 1+ H Urine Glucose (UA) Negative Urine Ketones Negative Urine Occult Blood 2+ H Urine Nitrate Positive H Urine Bilirubin Negative Urine Urobilinogen 0.2 Ur Leukocyte Esterase 2+ H Urine RBC 5-10/hpf H Urine WBC >100/hpf H Urine Bacteria Many (>30) H Ur Culture Indicated? Specimen cultured SARS-CoV-2 (PCR) Negative 07/02/21 07/03/21 07/03/21 21:19 05:08 05:08 WBC 10.2 RBC 3.61 L Hgb 11.8 L Hct 35.1 L MCV 97.0 MCH 32.7 MCHC 33.7 RDW 14.2 Plt Count 208 Neut % (Auto) 73.9 Lymph % (Auto) 17.5 L [place] % (Auto) 7.7 Eos % (Auto) 0.5 L Baso % (Auto) 0.4 Neut # (Auto) 7500 H Lymph # (Auto) 1800 [place] # (Auto) 800 Eos # (Auto) 100 Baso # (Auto) 0 Sodium 140 Potassium 4.0 Chloride 109 H Carbon Dioxide 25 BUN 25 H Creatinine 0.85 Estimated GFR > 60.0 BUN/Creatinine Ratio 29.4 H Glucose 129 H D Hemoglobin A1c Lactate 2.6 H Calcium 8.6 Total Bilirubin AST ALT Alkaline Phosphatase Total Protein Albumin Globulin Albumin/Globulin Ratio Lipase Procalcitonin Urine Color Urine Appearance Urine pH Ur Specific [place] Urine Protein Urine Glucose (UA) Urine Ketones Urine Occult Blood Urine Nitrate Urine Bilirubin Urine Urobilinogen Ur Leukocyte Esterase Urine RBC Urine WBC Urine Bacteria Ur Culture Indicated? SARS-CoV-2 (PCR) 07/03/21 05:08 WBC RBC Hgb Hct MCV MCH MCHC RDW Plt Count Neut % (Auto) Lymph % (Auto) [place] % (Auto) Eos % (Auto) Baso % (Auto) Neut # (Auto) Lymph # (Auto) [place] # (Auto) Eos # (Auto) Baso # (Auto) Sodium Potassium Chloride Carbon Dioxide BUN Creatinine Estimated GFR BUN/Creatinine Ratio Glucose Hemoglobin A1c 5.3 Lactate Calcium Total Bilirubin AST ALT Alkaline Phosphatase Total Protein Albumin Globulin Albumin/Globulin Ratio Lipase Procalcitonin Urine Color Urine Appearance Urine pH Ur Specific [place] Urine Protein Urine Glucose (UA) Urine Ketones Urine Occult Blood Urine Nitrate Urine Bilirubin Urine Urobilinogen Ur Leukocyte Esterase Urine RBC Urine WBC Urine Bacteria Ur Culture Indicated? SARS-CoV-2 (PCR) Assessment & Plan Assessment & Plan narrative: 1. UTI-continue with IV levofloxacin. Patient did have a rash with cefuroxime which he was discharged with from the hospital in [place]. he required long-term catheterization because of urinary retention postoperatively and developed infection and was discharged on the cefuroxime which caused a significant rash. Will await urine culture results before trying to tailor anti biotics. Was seen by Urology on day of admission and for now will keep catheter in place 2. Sepsis-patient with borderline evidence of sepsis based on lab work, vital signs, and infection. Responded nicely to fluids as well as antibiotics. I believe this is now resolved 3. Urinary tract-patient with chronic urinary retention requiring catheter placement during previous hospitalization. Has had issues with infection. Continue to monitor with IV antibiotics. Continue with tamsulosin as prescribed by Urology on day of admission. Plan is for cystoscopy and voiding trial some point in the future 4. Diabetes-continue with carb consistent diet and monitor blood sugars. Patient does not appear to be on any medication for his diabetes at this point. Been quite sometime since hemoglobin A1c was checked and that will be checked during this hospitalization. 5. Hypertension-patient with borderline elevated blood pressures in the past. Currently not an active issue and patient not chronically on medication 6. Hyperlipidemia-continue usual medication 7. Vascular disease-patient with known carotid occlusion and significant stroke resulting in necessity of placement of a VISCOSE CELLAR WORKER shunt some years ago. Continue with secondary prevention as above monitoring blood pressure lipids etcetera 8. Dementia-patient with an element of dementia which has been slowly progressive over time. Most consistent with probably a vascular dementia more than anything else. Continue to monitor for behavioral issues here in the hospital. 9. VTE prophylaxis-patient will be on Lovenox 10. Code status-patient initially placed as full code but will discuss with family when available regarding wishes for code status in the event of sudden cardiac or respiratory arrest 11. Disposition-patient likely to return home under the care of his daughter. Will have skilled therapy see him here as well as care management I believe patient deserves inpatient hospitalization given his evidence of sepsis and significant infection as well as underlying comorbidities. He will be in the hospital greater than 48 hours that will include 2 separate midnights Time Spent With Patient Critical Care time: I spent a total of [] minutes of critical care time on this patient's care today; this time is exclusive of procedural time. Quality VTE Deep Vein Thrombosis/Pulmonary Embolism Present on Admission: No
[2021-07-03 08:30] LABS: Alanine Aminotransferase 121 IU/L (<50); Albumin 3.3 g/dL (3.5-5.0); Albumin Globulin Ratio 0.9 (1.0-2.8); Alkaline Phosphatase 32 U/L (38-126); Aspartate Aminotransferase 173 IU/L (17-59); Bilirubin Total 0.6 mg/dL (0.2-1.3); Bilirubin Unconjugated 0.5 mg/dL (0.0-1.1); Globulin 3.7 g/dL (1.7-4.1); HEMOLYSIS 47 (0-50)
[2021-07-03] MEDS: ENOXAPARIN 40 MG/0.4 ML SYRINGE SUBCUT (10:12)
[2021-07-03] MEDS: MULTIVITAMIN 1 TABLET 1 TAB PO (10:12)
--- NOTE | 2021-07-03 10:40 | PT.IIE ---
Current Diagnoses Sepsis, unspecified organism (07/02/21) Medical History (Last Reviewed 07/03/21 @ 06:45 by Raul Beasley MD) Benign prostatic hyperplasia with incomplete bladder emptying (05/09/17) Chronic renal failure, stage 2 (mild) Colostomy in place (~04/2021) History of stroke (03/12/11) Hypertension (03/12/11) Peripheral vascular disease Retention of urine Type 2 diabetes mellitus without complication (03/12/11) Physical Therapy Inpatient Evaluation/Re-Eval M1 PT/OT-IP Prior Functional Status Start: 07/03/21 12:16 Freq: NEEDED Status: Active Protocol: Document 07/03/21 10:40 AB (Rec: 07/03/21 12:32 AB [id number]) Medical Review Prior Functional Status Medical History Reviewed Yes Communication pt with dx dementia and unable to provide PLOF and home set up; able to respond to questions but info not accurate Mobility and Gait spoke with special education case manager who just spoke with pt's daughter( caregiver). stated that pt was mod independent with ambulation using a FWW but was hospitalized s/p colostomy a few months ago but was still able to go home afterwards and still able to ambulate with a FWW. pt then got hospitalized again for shingles and UTI but was able to go home afterwards with just 1 person assist at home. pt then started getting contractures on BLE for the last month and was needed 2 person asisst with mobility. daughter assists pt and has caregivers that comes in to assist as well. pt has been receiving HHPT for contracture management. Social History Household Members family Living Arrangements House Home Equipment Front Wheel Walker,Four Wheel Walker M2 PT-IP Current Condition Start: 07/03/21 12:16 Freq: NEEDED Status: Active Protocol: Document 07/03/21 10:40 AB (Rec: 07/03/21 12:32 AB [email or web address]) Physical Therapy Current Condition Current Condition Evaluation Date 07/03/21 Treatment Diagnosis UTI; sepsis; difficulty in walking Onset Date 07/02/21 M3 PT-IP Subjective Start: 07/03/21 12:16 Freq: NEEDED Status: Active Protocol: Document 07/03/21 10:40 AB (Rec: 07/03/21 12:32 AB [email or web address]) Subjective Physical Therapy Visit Type Type Initial Evaluation Visit Start Time 10:40 Visit Stop Time 11:00 Total Visit Minutes 20 Number of SENIOR COMPENSATION CONSULTANT Visits 0 Physical Therapy Visit Comments Patient Comments pt easily gets agitated; difficulty following instructions M4 PT-IP Mobility and Gait Start: 07/03/21 12:16 Freq: NEEDED Status: Active Protocol: Document 07/03/21 10:40 AB (Rec: 07/03/21 12:32 AB [email or web address]) PT-Bed Mobility Assessment Supine to Sit Supine to Sit Maximum Assistance,1 Person Assistance,2 Person Assistance ,Head of Bed Elevated PT-Transfer Assessment Sit to and From Stand Sit to and from Stand Total Assistance,2 Person Assistance,Use of Upper Extremities Equipment Transfer Assistive Device Gait Belt,Front Wheeled Walker Orthotic/Prosthetic Devices or Brace: No Comments Mobility Comments pt completed supine to sit max A x 1-2 and max cues with HOB elevated. pt easily gets agitated and has dx dementia affecting following directions . pt able to sit on EOB min A and cues for balance. completed sit to stand total A x 2 and max cues. attempted x 3. pt unable to get to an upright position with LE sliding forward with increase posterior trunk leaning and resistance. Pt unable to follow instructions and gets agitated. pt laid back in bed max A x 2 sit to supine and max cues. total x 2 for positioning in bed. call light and table placed within reach. PT-Balance Assessment Sitting Balance and Reactions Static Sitting Balance Ability Fair Dynamic Sitting Balance Ability Fair Standing Balance and Reactions Static Standing Balance Ability Poor Dynamic Standing Balance Ability Poor Device Used FWW M5 PT-IP Objective Assessments Start: 07/03/21 12:16 Freq: NEEDED Status: Active Protocol: Document 07/03/21 10:40 AB (Rec: 07/03/21 12:32 AB [email or web address]) Orientation Orientation/Cognition Level of Alertness Confusional State Orientation Name Safety Awareness Decreased Safety Awareness Memory Description Short Term Impaired,Pattern Drafter Impaired Gross Range of Motion Lower Extremity ROM Assessment Bilaterally Impaired Impairments R knee flexion: ~ 30 deg L knee flexion: ~ 40 deg Strength Lower Extremity Strength Assessment Bilaterally Impaired Hip 3+/5 Knee 3+/5 Other Assessments Other Other Assessments increase BLE guarding with PROM; RLE with increase flexion tone but able to extend more compared to LLE with inhibition techniques provided. M6 PT-IP Treatment Start: 07/03/21 12:16 Freq: NEEDED Status: Active Protocol: Document 07/03/21 10:40 AB (Rec: 07/03/21 12:32 AB [email or web address]) Physical Therapy Treatment Education Education Provided Safety M7 PT-IP Assessment and Plan Start: 07/03/21 12:16 Freq: NEEDED Status: Active Protocol: Document 07/03/21 10:40 AB (Rec: 07/03/21 12:32 AB [email or web address]) PT Summary Assessment and Plan Potential Rehabilitation Potential Fair Status of Condition at Evaluation Evolving Summary Impairments Pain,ROM,Strength,Balance, Coordination,Sensation,Tone, Cognition,Bed Mobility, Transfers,Gait,Activity Tolerance Assessment Summary pt requiring totol A x 2 and unable to stand upright at this time. requires mechanical lift for transfers at this time. pt with difficulty following directions and gets easily agitated during mobility. pt will require SNF rehab to improve strength and mobility. Goals Bed Mobility Goal Standby Assistance Transfer Goal Moderate Assistance,Front Wheeled Walker Gait Goal Moderate Assistance,Front Wheel Walker Gait Distance 50 Days to Meet Goals 10 Frequency of Treatment Frequency Of Treatment Once a Day Treatment Plan Physical Therapy Treatment Plan Bed Mobility Training,Transfer Training,Gait Training, Therapeutic Exercise,Balance Retraining,Discharge Planning, Hot or Cold Pack,Neuromuscular Re-ed,Coordination Retraining ,Manual Therapy Precautions Other Precautions falls Recommendations To Nursing Amount of Assist Needed Mechanical Lift Discharge Recommendations PT Discharge Recommendations SNF Rehab Transportation Needs at Discharge Wheelchair/Cabulance,Stretcher /Ambulance
[2021-07-03] MEDS: SODIUM CHLORIDE 0.45% 1,000 ML 84 ML IV ×2 (11:25→22:48)
--- NOTE | 2021-07-03 12:19 | OT.IP.EVAL ---
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 Status post partial colectomy (~04/2021) Type 2 diabetes mellitus without complication (03/12/11) Surgical History (Last Reviewed 07/03/21 @ 06:45 by Raul Beasley MD) History of carotid endarterectomy (~02/2009) S/P 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 Status post partial colectomy (~04/2021) Occupational Therapy Inpatient Evaluation/Re-Eval M2 OT-IP Current Condition Start: 07/03/21 11:53 Freq: Status: Active Protocol: Document 07/03/21 11:53 [facility] (Rec: 07/03/21 12:19 [facility] [id number]) Occupational Therapy Current Condition Current Condition Evaluation Date 07/03/21 Treatment Diagnosis UTI/sepsis Diagnosis Onset Date 07/02/21 M3 OT- IP Subjective and Pain Start: 07/03/21 11:53 Freq: Status: Active Protocol: Document 07/03/21 11:53 [facility] (Rec: 07/03/21 12:19 [facility] [id number]) OT- Subjective Occupational Therapy Visit Type Type Initial Evaluation Visit Start Time 09:48 Visit Stop Time 10:27 Total Visit Minutes 49 Occupational Therapy Visit Comments Patient Comments Pt agreed to get up. Patient/Caregiver Goals Pt not able to state at this time as a bit confused. OT Pain Assessment Pain When Pain Assessed At Rest Pain Present Pain Present Pain Reported Location Bilateral legs Pain Behaviors Facial Grimacing,Guarding, Holding Area M4 OT- IP ADL's Start: 07/03/21 11:53 Freq: Status: Active Protocol: Document 07/03/21 11:53 [facility] (Rec: 07/03/21 12:19 [facility] [id number]) OT [id number] Comments OT Self-Feeding Comments NOt at meal time, noted coughing while drinking water and noted wet-cough. Suggested to nursing pt would benefit form AEROSPACE PROJECT ENGINEER eval for swallowing needs. OT ADL-Grooming Comments OT Grooming Comments NOt performed. OT ADL-Oral Care Comments Oral Care Comments NOt performed. OT ADL-Dressing General Eval Lower Body Dressing Ability Total Assistance OT ADL-Toileting General Evaluation Toileting Ability Total Assistance Comments OT Toileting Comments Pt has catheter. OT ADL-Bathing Comments OT Bathing Comments Sponge bath more appropriate at this time. M5 OT- IP IADL's Start: 07/03/21 11:53 Freq: Status: Active Protocol: Document 07/03/21 11:53 [facility] (Rec: 07/03/21 12:19 [facility] [id number]) OT-Instrumental Activities of Daily Living Home Safety Awareness Home Safety Comments Pt lives with his daughter also has additional caregivers to assist for all pt's needs. M6 OT- IP Functional Cognition Start: 07/03/21 11:53 Freq: Status: Active Protocol: Document 07/03/21 11:53 [facility] (Rec: 07/03/21 12:19 [facility] [id number]) Cognitive Factors Limiting Selfcare Function Cognitive Ability Level of Alertness Confusional State Patient Orientation Name Attention Span Ability Capable of Focused Attention, Unable to Sustain Attention Ability to Follow Commands Able to Follow One Step Commands with Increased Time, Able to Follow One Step Commands with Repetition Safety Awareness Underestimates Need for Assistance Cognitive Comments Cognitive Assessment Comments Pt just orientated to name and not aware that he is in the hospital. Pt needing concrete simple commands to follow. Pt gets worked up but able to redirect. OT- Vision and Hearing OT- Hearing Assessment OT- Hearing Assessment WFL OT- Vision Assessment Visual Acuity Glasses For Reading Vision Assessment Comments Pt states has reading glasses. M7 OT- IP Mobility and Balance Start: 07/03/21 11:53 Freq: Status: Active Protocol: Document 07/03/21 11:53 [facility] (Rec: 07/03/21 12:19 [facility] [id number]) OT- Bed Mobility Assessment Rolling Type of Rolling Roll to Right Level of Assistance Maximum Assistance,Bedrails Supine to Sit Supine to Sit Assist Total Assistance,1 Person Assistance Sit to Supine Sit to Supine Assist Maximum Assistance,2 Person Assistance OT-Transfer Assessment Sit to and From Stand Sit to and from Stand Maximum Assistance,Total Assistance,2 Person Assistance Comments Mobility Comments Pt needing MAX/total assist to help sit to the edge of the bed and after there able to sit with holding to bed rail SBA. Attempted to stand pt with FWW max/totalA x2 to partial stand as pt not able to straighten his legs out. Total asisst x2 to get pt back to supine. OT- Gait Assessment Comments Gait Ability Comments NOt at this time. Tete lift. OT- Balance Assessment Sitting Balance and Reactions Static Sitting Balance Ability Poor Dynamic Sitting Balance Ability Poor Standing Balance and Reactions Static Standing Balance Ability Poor Dynamic Standing Balance Ability Poor M8 OT- IP Objective Assessments Start: 07/03/21 11:53 Freq: Status: Active Protocol: Document 07/03/21 11:53 [facility] (Rec: 07/03/21 12:19 [facility] [id number]) OT Gross Range of Motion Upper Extremity Range of Motion Assessment Bilaterally Impaired OT Strength Comments Strength Comments NOt able to formally assess due to pt's difficulty to follow directions. Pt at least 3-/5 throughtout. M9 OT- IP Assessment and Plan Start: 07/03/21 11:53 Freq: Status: Active Protocol: Document 07/03/21 11:53 [facility] (Rec: 07/03/21 12:19 [facility] [id number]) OT Summary Assessment and Plan Potential Rehabilitation Potential Fair Analytic Complexity at Evaluation Moderate Summary OT Impairments Pain,Range of Motion,Strength, Balance,Functional Cognition, Functional Mobility,Self- Feeding,Grooming,Dressing, Toileting,Bathing,Toilet Transfers,Shower Transfers, Activity Tolerance Progress Towards Goals Slow Progress due to Pain,Slow Progress due to Medical Issues,Slow Progress due to Activity Tolerance,Slow Progress due to Cognition Assessment Summary Pt MOD complexity and now needing extensive assist for ADL and mobility needs. Prior to one month ago per case management's conversation with pt' daughter was able to stand with SBA and transfer with FWW and able to assist with ADL needs. Pt would benefit from skilled rehab as current level of care too great for pt 's daughter to assist. Goals Self-Feeding Goal Standby Assistance Grooming Goal Standby Assistance Dressing Goal Moderate Assistance Toileting Goal Moderate Assistance Bathing Goal Moderate Assistance Toilet Transfer Goal Minimal Assistance Shower Transfer Goal Minimal Assistance Days to Meet Goals 45 Frequency of Treatment Frequency Of Treatment Once a Day Treatment Plan OT Treatment Plan ADL Training,Functional Cognition Training,Functional Mobility,Patient/Family Education,Discharge Planning Other Treatment Recommendations and Next Grooming for the edge of the Treatment Focus bed. Discharge Recommendations OT Discharge Recommendations SNF Rehab Transportation Needs at Discharge Wheelchair/Cabulance
--- NOTE | 2021-07-03 16:11 | DIET.CONS ---
Dietary Consultation Note Admission Date: 07/02/2021 22:08 Assessment: 81y M c dementia admitted for UTI c probable sepsis screened by RD for low BMI for age. Pt has lived c his daughter for many years successfully. Pt weight stable from 8416-2154. In late 2019 pts granddaughter leaving his daughter and caregiver to raise the (great) grandchildren. Pt started exhibiting weight loss after May 2020. Per chart review he was hospitalized at [facility] in 05/03 for sigmoid volvulus requiring colostomy. A month later, hospitalized at [facility] for UTI, now, another month later, hospitalized for the same at . Pt has had 25.4% weight loss in the past year, with much likely lost secondary to hospitalizations and prolonged NPO status and PO orders not meeting EERs. However, pt with baseline dementia reducing hunger and thirst cues and situational awareness/safety. While viewing pt sleeping, bony prominences are protruding: temporal, mandibular, clavicular, ribs. Per report from principal web developer, pt weaker than baseline with increased caregiver assistance including hired home health. Pt diabetic c diet control- historical A1c 6.1-6.9 over past 4y, now 5.3 further suggesting poor nutrition in past 10 weeks. Ht: 177.8 cm Wt: 65.5 kg (-25.4% in 1y or less, severe) BMI: 20.7 (severe for age) UBW: 90-100kg (1175-5653) Last BM: () MNA: Giancarlo Score: 15 Diet: 07/02/21 Breakfast Carbohydrate Consistent Diet Diet Modifications: Carbohydrate level: Medium (3 CHO) Bedtime snack: Yes Nutrition Percent Meal Consumed 100% 07/03/21 13:20 Percent Meal Consumed 100% 07/03/21 09:39 Labs: RBC 3.61 X10^6/uL (4.5-5.9) L 07/03/21 05:08 Hgb 11.8 g/dL (13.5-17.5) L 07/03/21 05:08 Hct 35.1 % (41-53) L 07/03/21 05:08 Creatinine 0.85 mg/dL (0.66-1.25) 07/03/21 05:08 Hemoglobin A1c 5.3 % (4.0-6.0) 07/03/21 05:08 Lactate 2.6 mmol/L (0.7-2.1) H 07/02/21 21:19 Nutrition Diagnosis: 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 Interventions: 1. Recc ONS Ensure Max once daily and ONS Glucerna bid to be consumed as snacks between meals combined providing 60% protein, 25% kcal, and micronutrient needs. 2. Recc observing pt with hospital meal tray- if pt able to identify nourishments and self-feed with efficacy. EER: 2200 kcals (35kcal/kg), 85g PRO (1.3g/kg) Monitoring/Evaluations: POs, ONS tolerance Electronically Signed by: Osiris Quintana 07/03/21 16:11 Clinical Dietitian [address] [address]
--- NOTE | 2021-07-03 16:40 | CM.DANOTE ---
DCP assessment: Patient is a 81 yr old male with dementia who presented here with UTI and Sepsis. patient currently lives with his daughter Marta Syed in [place] in a single level home. Patient is only oriented to self at this time. CM called daughter to discuss DC planning. 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 Patient is not vaccinated. CM spoke to patients daughter who stated she would like him to go to [facility] or home with if he cannot go to [facility]. CM spoke with Hillary at [facility] who stated she cannot take the patient since he has dementia and needs to be close to the nurses station but is unvaccinated and would have to go into isolation area which is to far away from staff view. SIMRAN explained this to the patients daughter and she stated that she will just take him home then. Cm also encouraged that patients daughter to work on superintendent terminal planning for the patient for the future as his dementia continues to decline. Patient is already established with [facility] and will need to be re-established with them when the patient is medically ready for DC- will get new F2F signed with nursing, PT , OT, aid for showers and medical legal investigator. According to patients daughter about two months ago patient had to get a colostomy at [facility], patient also had shingles and has had two UTIs after having his catheter placed. since then the patient has gone from being able to ambulate with FWW with stand by assist to being a max assist and needing a sadiq lift. Patients daughter believes the patient is having a lot of anxiety due to his dementia and being in and out of the hospital so much lately that it is contributing to the patients contracture's... she was hoping that maybe having either a muscle relaxer or Ativan at night might help to calm him down so that PT, OT and the therapy she does with him will help to relieve the Contracture issues and hopefully increase his mobility. SIMRAN explained that depending on the patients ability to comply with exercises and participate in therapy may significantly limit his ability to rehab. Patients daughter stated understanding. CUrrently at home the patient lives with his daughter and they have private caregivers who help full-tme at home as well. Patients daughter stated she would like to be able to work with PT and OT to help her father improve mobility. CM encouraged her to come to the hospital and participate in the patients therapy sessions and set up caregiver training with them. She stated understanding and was in agreement with this. I: Medicare and for life. Plan: DC home with [facility] - was going to be SNF but doesn't want him to go to anywhere but [facility] and they cannot accept at this time due to patient being unvaccinated. Audrey Ross Discharge Planning/Care Management CM Discharge Assessment Start: 07/03/21 16:12 Freq: Status: Active Protocol: Document 07/03/21 16:14 HS (Rec: 07/03/21 16:17 HS [id number]) Discharge Planning Assessment Assigned Senior Chemical Process Engineer Audrey cuevas Rn Case Cody DPOA/Assigned Designee Name Marta Syed ( Daughter) Contact Information [phone] Advance Directives? Yes Advance Directives on File No History Provided By Family Member,Medical Record Prior Living Arrangements House Household Members family Type of transporation used prior to Relies on Others admit Independent with ADL's No Is patient alert and oriented? No Needs Assistance With Grooming,Meal Prep,Toileting, Managing Medications,Home Chores / Shopping Caregiver for Another No Patient/Family Preference Home with Home Health Barriers to Discharge No Discharge Plan Home with Home Health Community Services Physical Therapy,Occupational Therapy,Home Health Aid,Home Health Nurse,Social Work Transportation Arrangement Daughter Marta will provide transport home Referrals Initiated Home Health Whiteboard Updated in Patient Room with Yes name and ext. # of Senior Chemical Process Engineer Review Status In Process Next Review Type Continued Stay Review
[2021-07-03] MEDS: ATORVASTATIN 20 MG TABLET 40 MG PO (20:36)
[2021-07-03] MEDS: TAMSULOSIN 0.4 MG CAPSULE 0.8 MG PO (20:37)
[2021-07-03] MEDS: levoFLOXacin 500 MG/100 ML PIGGYBACK 100 MG IV (20:38)
[2021-07-04 07:29] VITALS: BP 122/55; PULSE 96; RESP 18; TEMP 37.3; O2SAT 100
[2021-07-04 08:04] VITALS: O2SAT 98
--- NOTE | 2021-07-04 08:38 | PM.PN.1 ---
Subjective Subjective Date Patient Seen: 07/04/21 Time Patient Seen: 08:39 Interval history: Pretty much uneventful day yesterday. Up with skilled therapies still very weak not really able to participate much with anything. This seems similar to where he was at with discharge after his hospitalization for his sigmoid volvulus. Patient went home with home health and has struggled Urine culture growing E coli that is resistant to the fluoroquinolones Exam Vital Signs (past 8 hours): - 07/04/21 07:29 07/04/21 08:04 Temperature 99.2 F Pulse Rate 96 H Respiratory Rate 18 Blood Pressure 122/55 L Pulse Oximetry 100 98 Oxygen Delivery Method Room Air Oxygen Flow Rate 0 Objective Labs Result Diagrams: 07/03/21 05:08 07/03/21 05:08 REPLACED BY [facility] Medical History Benign prostatic hyperplasia with incomplete bladder emptying (05/09/17) Chronic renal failure, stage 2 (mild) Colostomy in place (~04/2021) History of stroke (03/12/11) Hypertension (03/12/11) Peripheral vascular disease Retention of urine Type 2 diabetes mellitus without complication (03/12/11) Surgical History History of carotid endarterectomy (~02/2009) 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 UTI-patient growing E coli resistant to current antibiotic therapy which be discontinued. Patient had skin rash reaction to cefuroxime given his an outpatient so I am hesitant about both cephalosporins and penicillins. That does not leave a lot of options. He clinically is stable to improved in so I think he is okay on oral therapy I am going to go ahead and put him on trimethoprim sulfamethoxazole. Do not believe he requires parental therapy at this point for his UTI 2. Weakness-likely multifactorial including his recent hospitalization with surgery his UTI and his premorbid condition including his diabetes his significant vascular disease dementia history of stroke etcetera. Continue working with skilled therapies today but probably discharge home with home health services tomorrow. Discussed with daughter at length and she feels like this is in his best interest overall understanding that his potential for rehab is actually fairly limited and I think that is true 3. Diabetes-no active issues. Excellent control blood sugars for now 4. Hypertension-no active issues blood pressure okay 5. Dementia-no behavioral issues. 6. Code status-finding was able to speak with patient's daughter who has been primary caregiver. She is clear that she does not believe he would want to be resuscitated in the event of a sudden cardiac or respiratory arrest nor would she want him resuscitated. Quality life is significantly diminished which is exactly what I thought she would say and fits with might evaluation of the patient is well knowing him since he had his major stroke many years ago. Therefore he has made no code do not resuscitate for the purposes this hospitalization Note: Greater than 20 minutes total time was spent on day of service, evaluating the patient on the floor, including examining the patient, discussing clinical course with clinical and nursing staff, reviewing clinical course in the computer, preparing documentation and writing orders for continued management of care, discussing status with family as appropriate, reviewing plans for the next 24 hours with both patient/family and nursing staff as appropriate. Quality VTE Deep Vein Thrombosis/Pulmonary Embolism Present on Admission: No
[2021-07-04] MEDS: TRIMETH/SULFA 160/800 (DS) TABLET 1 TAB PO ×2 (09:04→21:41)
[2021-07-04] MEDS: MULTIVITAMIN 1 TABLET 1 TAB PO (09:04)
[2021-07-04] MEDS: ENOXAPARIN 40 MG/0.4 ML SYRINGE SUBCUT (09:05)
[2021-07-04] MEDS: SODIUM CHLORIDE 0.45% 1,000 ML 84 ML IV ×2 (09:06→21:50)
--- NOTE | 2021-07-04 10:28 | PC.NURSE ---
Addendum entered by Abbie Page R.N. 07/04/21 15:51: Patient pleasant and cooperative with care, sadiq back to bed, waffle placed under coccyx. Denies pain, no needs at this time, alarm on, daughter at bedside. Original Note: Patient oriented to self. Denies pain, cooperative with care. Coccyx red with two open areas, area cleansed and two allevyns placed. Patient turned to left side and waffle cushion placed. Bed alarm on.
--- NOTE | 2021-07-04 11:28 | CM.DPC ---
DCP Continued: SIMRAN spoke with PT and OT today about the patient and how the patients daughter and primary health care assistant wants to be apart of therapy today to learn anything she can to help support her fathers continued progress. plan is for the patient to DC home when medically stable to do so. Per MD note patient will be DC home tomorrow most likely. SIMRAN Called [facility] and they stated they will need a new F2F. SIMRAN filled one out and I have placed it into the patients red chart to be signed by MD tomorrow prior to patients DC home. SIMRAN will fax the F2F along with DC summary to [facility] when patient is ready for DC.. SIMRAN spoke with patients daughter Marta who is planning on coming in today to work with the patient and PT and OT to do caregiver training and see if there is anything she can use at home. SIMRAN encouraged the patients daughter to start exterminator helper termite planning now for her father who is deteriorating quite quickly and will need to think about how he will get care in the future. She stated she will and is happy were recommending an [employer] to work with her on senior living planning through . Audrey Walden RN Case Manger.
--- NOTE | 2021-07-04 13:30 | OT.IP.TRT ---
Current Diagnoses Sepsis, unspecified organism (07/02/21) Occupational Therapy Treatment Note M2 OT-IP Current Condition Start: 07/03/21 11:53 Freq: Status: Active Protocol: Document 07/03/21 11:53 [facility] (Rec: 07/03/21 12:19 [facility] [id number]) Occupational Therapy Current Condition Current Condition Evaluation Date 07/03/21 Treatment Diagnosis UTI/sepsis Diagnosis Onset Date 07/02/21 M3 OT- IP Subjective and Pain Start: 07/03/21 11:53 Freq: Status: Active Protocol: Document 07/04/21 13:32 [facility] (Rec: 07/04/21 13:47 [facility] [id number]) OT- Subjective Occupational Therapy Visit Type Type Treatment Note Visit Start Time 13:07 Visit Stop Time 13:30 Total Visit Minutes 23 Occupational Therapy Visit Comments Patient Comments Pt's daughter in the room for caregiver training. Patient/Caregiver Goals To go home. OT Pain Assessment Pain When Pain Assessed At Rest Pain Present Pain Present Denied Pain M4 OT- IP ADL's Start: 07/03/21 11:53 Freq: Status: Active Protocol: Document 07/04/21 13:32 [facility] (Rec: 07/04/21 13:47 [facility] [id number]) OT QEM-[id number]-[id number] Comments OT Self-Feeding Comments Suggested for pt to have softer food to be able to swallow better. Pt having difficulty swallowing the rice . Able to talk to pt's nurse regarding possible PATIENT FINANCIAL SERVICES COORDINATOR eval or change to a softer diet. Pt's daughter states usually cooked him broth and vegetables. OT ADL-Dressing Comments OT Dressing Comments Pt's daughter asisst with all needs. OT ADL-Toileting Comments OT Toileting Comments Pt has a virk and colostomy bag. OT ADL-Bathing Comments OT Bathing Comments Pt's daughter just sponging pt off in the bed. M5 OT- IP IADL's Start: 07/03/21 11:53 Freq: Status: Active Protocol: Document 07/03/21 11:53 [facility] (Rec: 07/03/21 12:19 [facility] [id number]) OT-Instrumental Activities of Daily Living Home Safety Awareness Home Safety Comments Pt lives with his daughter also has additional caregivers to assist for all pt's needs. M6 OT- IP Functional Cognition Start: 07/03/21 11:53 Freq: Status: Active Protocol: Document 07/04/21 13:32 [facility] (Rec: 07/04/21 13:47 [facility] [id number]) Cognitive Factors Limiting Selfcare Function Cognitive Ability Level of Alertness Alert,Confusional State Patient Orientation Name Attention Span Ability Capable of Focused Attention, Capable of Sustained Attention Ability to Follow Commands Able to Follow One Step Commands with Increased Time, Able to Follow One Step Commands with Repetition Safety Awareness Underestimates Need for Assistance Cognitive Comments Cognitive Assessment Comments Pt easily agitated and needing concrete simple cues to follow. OT- Vision and Hearing OT- Hearing Assessment OT- Hearing Assessment WFL M7 OT- IP Mobility and Balance Start: 07/03/21 11:53 Freq: Status: Active Protocol: Document 07/04/21 13:32 [facility] (Rec: 07/04/21 13:47 [facility] [id number]) OT-Transfer Assessment Sit to and From Stand Sit to and from Stand Total Assistance,2 Person Assistance Comments Mobility Comments Pt needing total assist to get to the edge of the recliner and to assist to stand TOTAL assist x2 partial stand and also his daughter to assist to hold the FWW in place. OT- Gait Assessment Comments Gait Ability Comments NOt at this time. Tete lift. OT- Balance Assessment Sitting Balance and Reactions Static Sitting Balance Ability Poor Dynamic Sitting Balance Ability Poor Standing Balance and Reactions Static Standing Balance Ability Poor Dynamic Standing Balance Ability Poor M8 OT- IP Objective Assessments Start: 07/03/21 11:53 Freq: Status: Active Protocol: Document 07/03/21 11:53 [facility] (Rec: 07/03/21 12:19 [facility] [id number]) OT Gross Range of Motion Upper Extremity Range of Motion Assessment Bilaterally Impaired OT Strength Comments Strength Comments NOt able to formally assess due to pt's difficulty to follow directions. Pt at least 3-/5 throughtout. M9 OT- IP Assessment and Plan Start: 07/03/21 11:53 Freq: Status: Active Protocol: Document 07/04/21 13:32 [facility] (Rec: 07/04/21 13:47 [facility] [id number]) OT Summary Assessment and Plan Potential Rehabilitation Potential Poor Analytic Complexity at Evaluation Moderate Summary OT Impairments Pain,Range of Motion,Strength, Balance,Functional Cognition, Functional Mobility,Self- Feeding,Grooming,Dressing, Toileting,Bathing,Toilet Transfers,Shower Transfers, Activity Tolerance Progress Towards Goals Slow Progress due to Pain,Slow Progress due to Medical Issues,Slow Progress due to Activity Tolerance,Slow Progress due to Cognition Assessment Summary Able to get prior level of care from pt's daughter and the she assist pt for all needs at this time, therefore pt is at his baseline level for ADl needs. Pt's daughter states that she has a tete lift, wc, hospital bed and air mattress. Pt's daughter states has a friend who assist pt to get into and out of the car. At this time would be safer to have pt do by stretcher back home. Pt to go home with 24/ assist. Pt having trouble with having food in his mouth and not able to get the rice down. Notified nursing of request for PATIENT FINANCIAL SERVICES COORDINATOR alisal to help advise for best diet texture. Frequency of Treatment Frequency Of Treatment Discharge Discharge Recommendations OT Discharge Recommendations Home with 24/7 Assist Available Transportation Needs at Discharge Stretcher/Ambulance
--- NOTE | 2021-07-04 13:30 | PT.IPTN ---
Current Diagnoses Sepsis, unspecified organism (07/02/21) Physical Therapy Treatment Note M2 PT-IP Current Condition Start: 07/03/21 12:16 Freq: NEEDED Status: Active Protocol: Document 07/04/21 13:09 SP (Rec: 07/04/21 14:21 SP [id number]) Physical Therapy Current Condition Current Condition Evaluation Date 07/03/21 Treatment Diagnosis UTI; sepsis; difficulty in walking Onset Date 07/02/21 M3 PT-IP Subjective Start: 07/03/21 12:16 Freq: NEEDED Status: Active Protocol: Document 07/04/21 13:09 SP (Rec: 07/04/21 14:21 SP [id number]) Subjective Physical Therapy Visit Type Type Treatment Note Visit Start Time 13:09 Visit Stop Time 13:30 Total Visit Minutes 29 Notes Co tx with OT. Daughter present, provided DME equipment awareness has at home: adjustable hospital bed, BSC, FWW, Tete, air mattress , wc ramp, manual wc. Pt has paid caregiver 30 hrs week for assistance. Number of EXTENSION EDGER Visits 1 Physical Therapy Visit Comments Patient Comments Pt agreeable to working with therapy. M4 PT-IP Mobility and Gait Start: 07/03/21 12:16 Freq: NEEDED Status: Active Protocol: Document 07/04/21 13:09 SP (Rec: 07/04/21 17:49 SP [id number]) PT-Transfer Assessment Sit to and From Stand Sit to and from Stand Total Assistance,2 Person Assistance Equipment Transfer Assistive Device Gait Belt,Front Wheeled Walker Comments Mobility Comments Pt up in chair when arrived eating lunch. EXTENSION EDGER/OT noted difficulty eating lunch upon arrival daughter in room, OT notified nursing, recommended further assessment. LE AROM assessment: LAQ approx 80 deg knee flexion RLE and 90 deg LLE. Scoot to EOchair Max A x2 using transfer pad and redirection BUE on chair arms for self support. Sit<>stand Max- Total A x2 w/ BUE positioned on FWW, unable to redirect to chair arms push from chair, daughter provided bracing fWW support for stability. Attempted standing x2 but unable to complete full stand secondary to retro extension leaning and B feet sliding forward on floor with anterior support. EXTENSION EDGER/ OT assisted scooting pt back in chair Max- Total A x2. Therapy recommending tete for transfers with nursing and if returns home 03/02 available vs SNF. EXTENSION EDGER/ OT discussed with daughter, she wants him to return home has all DME needs for mobility and 30 hrs/week paid caregivers. Gait Assessment Comments Gait Comments unable. PT-Balance Assessment Sitting Balance and Reactions Static Sitting Balance Ability Poor Dynamic Sitting Balance Ability Poor Standing Balance and Reactions Static Standing Balance Ability Poor Dynamic Standing Balance Ability Poor Device Used FWW M5 PT-IP Objective Assessments Start: 07/03/21 12:16 Freq: NEEDED Status: Active Protocol: Document 07/03/21 10:40 AB (Rec: 07/03/21 12:32 AB [id number]) Orientation Orientation/Cognition Level of Alertness Confusional State Orientation Name Safety Awareness Decreased Safety Awareness Memory Description Short Term Impaired,Usp Impaired Gross Range of Motion Lower Extremity ROM Assessment Bilaterally Impaired Impairments R knee flexion: ~ 30 deg L knee flexion: ~ 40 deg Strength Lower Extremity Strength Assessment Bilaterally Impaired Hip 3+/5 Knee 3+/5 Other Assessments Other Other Assessments increase BLE guarding with PROM; RLE with increase flexion tone but able to extend more compared to LLE with inhibition techniques provided. M6 PT-IP Treatment Start: 07/03/21 12:16 Freq: NEEDED Status: Active Protocol: Document 07/04/21 13:09 SP (Rec: 07/04/21 17:49 SP [id number]) Physical Therapy Treatment Exercises Exercises Seated Knee Flexion/Extension Knee ROM Measurement see mobility comments M7 PT-IP Assessment and Plan Start: 07/03/21 12:16 Freq: NEEDED Status: Active Protocol: Document 07/04/21 13:09 SP (Rec: 07/04/21 17:49 SP [id number]) PT Summary Assessment and Plan Potential Rehabilitation Potential Fair Status of Condition at Evaluation Evolving Summary Impairments Pain,ROM,Strength,Balance, Coordination,Sensation,Tone, Cognition,Bed Mobility, Transfers,Gait,Activity Tolerance Progress Towards Goals Slow Progress due to Activity Tolerance,Slow Progress - Other Assessment Summary pt requiring max-total A x 2 and unable to stand upright at this time from recliner. requires mechanical lift for transfers at this time. pt with difficulty following directions requires max verbal and tactile cues for directioning. Daughter wants pt to return home with her available of which she has been his caregiver for many years and states is back to his baseline. Pt will have paid caregivers 30 hrs/ wk scheduled for extra support and has all DME requires, see notes above. Pt is ok to return home with daughter via BLS recommended transportation . Goals Bed Mobility Goal Standby Assistance Transfer Goal Moderate Assistance,Front Wheeled Walker Gait Goal Moderate Assistance,Front Wheel Walker Gait Distance 50 Days to Meet Goals 10 Frequency of Treatment Frequency Of Treatment Once a Day Treatment Plan Physical Therapy Treatment Plan Bed Mobility Training,Transfer Training,Gait Training, Therapeutic Exercise,Balance Retraining,Discharge Planning, Hot or Cold Pack,Neuromuscular Re-ed,Coordination Retraining ,Manual Therapy Other Recommendations and Next Treatment Pt is not appropriate for Focus therapy at this time dueto requiring total A and tete for transfers, Discussion with daughter if wanting further therapy or DC. Recommendations To Nursing Amount of Assist Needed Mechanical Lift Discharge Recommendations PT Discharge Recommendations Home with 03/02 Assist Available,SNF Rehab Transportation Needs at Discharge Wheelchair/Cabulance,Stretcher /Ambulance
[2021-07-04 15:45] VITALS: BP 106/61; PULSE 89; RESP 15; TEMP 36.2; O2SAT 99
[2021-07-04] MEDS: INSULIN LISPRO 100 UNIT/ML 3ML VIAL SUBCUT (16:39)
[2021-07-04 19:00] VITALS: O2SAT 94
[2021-07-04 19:27] VITALS: O2SAT 98
[2021-07-04 21:03] VITALS: BP 129/54; PULSE 103; RESP 16; TEMP 36.7; O2SAT 99
[2021-07-04] MEDS: TAMSULOSIN 0.4 MG CAPSULE 0.8 MG PO (21:37)
[2021-07-04] MEDS: ATORVASTATIN 20 MG TABLET 40 MG PO (21:37)
[2021-07-04] MEDS: SODIUM CHLORIDE 0.9% FLUSH 10 ML IV (21:38)
[2021-07-04] MEDS: ACETAMINOPHEN 325 MG TABLET 650 MG PO (21:40)
[2021-07-04] MEDS: BACLOFEN 10 MG TABLET PO (21:41)
[2021-07-05 04:00] VITALS: BP 125/47; PULSE 94; RESP 18; TEMP 36.5; O2SAT 95
--- NOTE | 2021-07-05 04:22 | PC.NURSE ---
0400: slept well thru the night, reluctant to change position, prefers supine. encouraged him to slightly turn, supported w/ pillows. HOB up 20-30 degrees, feet up. frequent colostomy checks, stoma healthy red, no SOI. soft brown stool in bag. frequent checks to ensure it doesnt pop off, frequent burping of bag required. patient denies pain/discomfort, agreeable to PRN apap at HS for general discomfort r/t immobility. accepts meds whole w/ vanilla pudding, chewed up meds. declined offer of crushing them. clear yaneth urine 1000cc collected, chronic virk patent, draining to gravity. call light w/in reach.
[2021-07-05 07:00] VITALS: O2SAT 99
[2021-07-05 07:45] VITALS: BP 148/59; RESP 16; TEMP 37; O2SAT 99
--- NOTE | 2021-07-05 08:29 | P.DS_ITS ---
History of Present Illness History of Present Illness Date Patient Seen: 07/05/21 Time Patient Seen: 08:30 Chief complaint: Legs curling up- hurts to push back down Narrative: 81-year-old male admitted from the [facility] Emergency Department because of UTI with probable sepsis. Patient with tachycardia, modest hypotension an obvious UTI. Patient also reported some discomfort in his legs which seem to be more positional as when he was reposition this seem to improve significantly ER evaluation showed a leukocytosis as well as the dirty urine and elevated lactate level. He responded in his vital signs with fluid volume and is admitted for continued treatment of his infection and sepsis Patient is somewhat recently admitted to 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 Lives chronically at home with daughter. Discharge Providers Provider Date of admission: 07/02/21 22:08 Discharge Date: 07/05/21 Primary care physician: Raul Beasley MD Consults: 07/02/21 23:13 Consult to Discharge Planning Routine Comment: Consult to Occupational Therapy Evaluate & Treat Comment: Physician Instructions: Evaluate and treat Consult to Ostomy Specialist Routine Comment: Consulting Provider: Consult to Physical Therapy Evaluate & Treat Comment: Physician Instructions: Evaluate and Treat 07/04/21 15:51 Consult to Dietitian, Adult Routine Comment: skin breakdown to coccyx Reason For Exam: goldie score Discharge provider: Raul Beasley MD Summary Hospital Course Discharge Diagnosis: 1. Acute UTI with E coli, with some resistance to fluoroquinolones 2. Chronic urinary retention, with chronic indwelling catheterization 3. Colostomy in place 4. Diabetes type 2 under excellent control 5. Dementia 6. Peripheral vascular disease with left carotid occlusion 7. Personal history of stroke 2010 8. Chronic renal failure stage 3 9. Severe acute on chronic protein calorie malnutrition due to recent hospitalization GI issues and probably chronic with his dementia and cognitive dysfunction 10. Sepsis with evidence of infection with E coli eventually in the urine tachycardia and hypotension as well as increased weakness and perhaps increased cognitive dysfunction thus suggesting end-organ issues as well Hospital Course: Patient was admitted to the hospital after coming to the emergency department. He was felt possibly to have sepsis, as noted in his H&P. He was treated with IV antibiotics IV fluids etcetera seem to respond rather rapidly. In the and his E coli was actually resistant to initial antibiotic therapy and this was switched by then he was clinically much improved. It is impossible to really be sure what the etiology of his infection is. He had a urinary tract infection upon discharge from [facility] in May when he had the catheter placed initially as he was unable to void on his own postop. He seem to clear with treatment at that time although he did develop that rash with the cefuroxime. Was seen by Urology on day of admission and had repeat culture done which proved the UTI at that time. Therefore the etiology of his infection whether not due to the catheter is really impossible to determine with any certainty. Patient was up with physical therapy felt to be doing much better in probably back to baseline Patient would benefit from fpc placement but this was not acceptable to patient's family and with additional assistance at home including home health services this is not entirely unreasonable. Patient's diabetes was assessed during this hospitalization his A1c remains quite low and normal within the nondiabetic range so actually there has been excellent control of his diabetes Patient's vascular issues are stable vital signs including blood pressure okay Therefore patient was felt to be stable to return home with increased assistance at home including home health services social work to assess resources available etcetera. Exam Vital Signs (past 8 hours): - 07/05/21 04:00 Temperature 97.7 F Pulse Rate 94 H Respiratory Rate 18 Blood Pressure 125/47 L Pulse Oximetry 95 Oxygen Delivery Method Room Air Oxygen Flow Rate 0 Objective Labs Result Diagrams: 07/03/21 05:08 07/03/21 05:08 [facility] Medical History (Updated 07/04/21 @ 08:39 by Lam Torrez MD) Benign prostatic hyperplasia with incomplete bladder emptying (05/09/17) Chronic renal failure, stage 2 (mild) Colostomy in place (~04/2021) E. coli urinary tract infection History of stroke (03/12/11) Hypertension (03/12/11) Peripheral vascular disease Retention of urine Type 2 diabetes mellitus without complication (03/12/11) Surgical History History of carotid endarterectomy (~02/2009) S/P REFRIGERATOR MOVER shunt Status post partial colectomy (~04/2021) Family History Father Cancer Sister Cancer Social History marital status: number of children: 1 household members: family Smoking Status: Former smoker alcohol intake: former caffeine: Yes Discharge Plan Discharge Plan Patient Disposition: Home Health Service Transfer to: [facility] Discharge orders & Medications Prescriptions: New sulfamethoxazole-trimethoprim 800-160 mg Tablet 1 tab PO BID Qty: 28 0RF Continued atorvastatin 40 mg tablet 40 mg PO QDAY Qty: 30 11RF (DME) Low air loss mattress See Rx Instructions .Route .MEDSUPPLY Qty: 1 0RF Rx Instructions: As directed nystatin 100,000 unit/gram powder 1 applic topical QID Qty: 60 7RF tamsulosin 0.4 mg capsule 0.8 mg PO BEDTIME Qty: 60 12RF Discontinued sulfamethoxazole-trimethoprim [Bactrim DS] 800-160 mg tablet 1 tab PO BID Qty: 28 0RF Medication counseling provided by Pharmacist: Yes Follow up/Referrals: Raul Beasley MD [Primary Care Provider] - 2 Weeks ([facility]ia [facility]) Kirti Forde MD [Non-Staff] - 2 Weeks (Follow-up hospitalization at [facility], and colostomy) Diet/Activity/Treatments Diet: Diet as Tolerated and Carb-consistent/Diabetic Catheter: 2-way Cohen Discharge Data Primary Care Provider: Raul Beasley Quality VTE Deep Vein Thrombosis/Pulmonary Embolism Present on Admission: No
--- NOTE | 2021-07-05 09:23 | CM.DPC ---
Addendum entered by Kalpana Duarte R.N. 07/05/21 09:39: Patient does not have a POLST form, and was DNR here at the hospital, therefor, patient is full code at this time. Confirmed with daughter that no POLST form has yet been completed. Hanane will update [facility]. Original Note: DCP Cont: Dr. Beasley signed face to face, and patient is discharging home today. Called and spoke to daughter, Marta, as patient resides with her, and she is primary caregiver. She is happy he is coming home. She is aware that patient needs to go via BLS transport, is bed bound. Called Alexa at [facility] and left a message letting her know that patient is discharging home today. Patient will need RN, P.T, O.T, bath aide, and APPLIQUE SEWER for resources. Hanane called [facility], and time of supervisor opening and picking is at 1300. BLS form and face sheet is by chart. There is no POLST form available. Nurse, Fiorella, will call daughter to see if she has POLST at home, and if it can be sent over. P: Patient is discharging home with [facility] via BLS. Nurse will see if daughter has POLST at home. Kalpana Duarte RN/Fabrication And Assembly Supervisor
--- NOTE | 2021-07-05 09:27 | CM.DPNOTE ---
Addendum entered by Hanane Gracia 07/05/21 09:39: Patient is a DNR while at stay, but a full code during ambulance transport per Suzy. I called Eunice at Amb and relayed this information. Hanane Gracia CM Asst. Original Note: Called for BLS transport per Suzy and spoke with Eunice at Ambulance for pt. pick up truck driver 15 1300. Told Kelly pt. is a DNR (and she said they need a POLST); also relayed pt. has virk. Spoke with Fiorella RN, about no POLST being available, and Fiorella was going to contact the daughter. Hanane Gracia CM Asst.
[2021-07-05] MEDS: TRIMETH/SULFA 160/800 (DS) TABLET 1 TAB PO (10:23)
[2021-07-05] MEDS: MULTIVITAMIN 1 TABLET 1 TAB PO (10:24)
[2021-07-05] MEDS: SODIUM CHLORIDE 0.9% FLUSH 10 ML IV (10:24)
[2021-07-05] MEDS: ENOXAPARIN 40 MG/0.4 ML SYRINGE SUBCUT (10:24)
--- NOTE | 2021-07-05 14:59 | PC.NURSE ---
Pt is A&Ox1-2 confused, but pleasant this a.m. VSS, afebrile on RA. He is agreeable to turning and to care. MD clears him for discharge home to daughter with home health. Pt's daughter notified and CM arranged EMS transport. Cohen in place, and colostomy in place. BG WNL, and he eats >50% of breakfast and lunch. RN explained discharge medications to daughter who verbalizes understanding. Report given to EMS prior to transportation, per CM he will be a FC after discharge and no POLST required at this time. EMS [facility] at approximately 1315.
== END 2021-07-05 13:15 | disposition home health service (06) | DRG 871 ==
LOC: ED 22:08 → AC 22:10
PROVIDERS: Emergency Medicine; Admitting Provider Internal Medicine; Emergency Provider Emergency Medicine; PCP Internal Medicine; Referring Provider Emergency Medicine; Visit Provider Internal Medicine
DX: A41.9 Sepsis, unspecified organism (principal); E43 Unspecified severe protein-calorie malnutrition; N39.0 Urinary tract infection, site not specified; Z16.19 Resistance to other specified beta lactam antibiotics; Z16.23 Resistance to quinolones and fluoroquinolones; R33.9 Retention of urine, unspecified; M25.551 Pain in right hip; M25.561 Pain in right knee; E11.51 Type 2 diabetes mellitus with diabetic peripheral angiopathy without gangrene; B96.20 Unspecified Escherichia coli [E. coli] as the cause of diseases classified elsewhere; F01.50 Vascular dementia, unspecified severity, without behavioral disturbance, psychotic disturbance, mood disturbance, and anxiety; I12.9 Hypertensive chronic kidney disease with stage 1 through stage 4 chronic kidney disease, or unspecified chronic kidney disease; E11.22 Type 2 diabetes mellitus with diabetic chronic kidney disease; N18.2 Chronic kidney disease, stage 2 (mild); E78.5 Hyperlipidemia, unspecified; Z86.73 Personal history of transient ischemic attack (TIA), and cerebral infarction without residual deficits; Z93.3 Colostomy status; Z20.822 Contact with and (suspected) exposure to COVID-19; R53.1 Weakness; Z68.20 Body mass index [BMI] 20.0-20.9, adult; N40.1 Benign prostatic hyperplasia with lower urinary tract symptoms; R39.14 Feeling of incomplete bladder emptying; I73.9 Peripheral vascular disease, unspecified
CPT/HCPCS: 36415; 71045; 73502; 73562; 76705; 80048; 80053; 80076; 81001; 81002; 82962; 83036; 83605; 83690; 84145; 85025; 87040; 87077; 87086; 87186; 87635; 93925; 94760; 96361; 96365; 97162; 97166; 97530; 97535; 99214; 99222; 99232; 99238; 99284; C9803; J1650; J1815; J1956; J7050